=== PATIENT | female | born 1965 | race Caucasian/White ===

== ENCOUNTER 2017-05-03 14:25 | Emergency (ER) | payer BC, OTHER ==
[2017-05-03 14:39] VITALS: TEMP 98.4
--- NOTE | 2017-05-03 14:48 | EDPHY ---
H & P Stated Complaint: infection in groshong catheter HPI/ROS: CHIEF COMPLAINT: Infected Groshong catheter HISTORY OF PRESENT ILLNESS: The patient is a 51 y/o female who complains of an infected Groshong catheter. She has a history of IGG immune deficiency, (and states that she has Borrelia, babesiosis, and lyme disease). She receives IVIG every other week; her last IVIG was 5 days ago. She last had her left-sided catheter taken out 8 weeks ago because of infection. A right sided Groshong was placed at that time. One week ago she developed pain at the insertion site of her Groshong catheter. She also notes that she is currently having sinus pressure; she has a history of sinus infection and sinus surgery. She is not on any antibiotics at this time. Denies fever. REVIEW OF SYSTEMS: A ten point review of systems was performed and is negative with the exception of the items mentioned in the HPI. Past medical history: IGG deficiency Lyme disease Past surgical history: Tubal ligation Family history: Clotting disorders Social history: Recently moved to [place] from [place] Son at bedside PCP: Dr. Robertson General Appearance: Alert. Anxious. Vital signs reviewed. Heart rate 109, blood pressure 127/79 at triage. Eyes: Pupils equal and round, no conjunctival injection, no discharge. Anicteric. ENT, Mouth: Mucous membranes are moist, no oropharyngeal erythema or edema. No sinus tenderness. Neck: No lymphadenopathy, supple. Thorax: Right upper thorax Groshong catheter with a centimeter worth of erythema extending proximally from the entry site, no purulence, slight warmth and tenderness at insertion site. Respiratory: Lungs are clear to auscultation; no wheezes, rales, or rhonchi. Cardiovascular: Mildly tachycardic. No murmur, rub, or gallop. Gastrointestinal: Abdomen is soft and nontender, no masses or organomegaly, bowel sounds normal. Skin: Warm and dry, no rashes on exposed skin, normal color. Back: Nontender to palpation over the thoracolumbar spine. No CVAT. Extremities: No lower extremity edema, no calf tenderness or swelling. Neurological: Alert and oriented. Moving all four extremities easily and equally. Psychiatric: Normal affect. - Personal History LMP (Females 10-55): Post Menopausal Current Tetanus/Diphtheria Vaccine: No - Medical/Surgical History Hx Asthma: No Hx Chronic Respiratory Disease: No Hx Diabetes: No Hx Cardiac Disease: No Hx Renal Disease: No Hx Cirrhosis: No Hx Alcoholism: No Hx HIV/AIDS: No Hx Splenectomy or Spleen Trauma: No Other PMH: immune deficiency/tubal ligation/lyme disease - Social History Smoking Status: Never smoked Constitutional: Initial Vital Signs Temperature (C) 36.9 C 05/03/17 14:36 Heart Rate 109 H 05/03/17 14:36 Respiratory Rate 17 05/03/17 14:36 Blood Pressure 127/79 H 05/03/17 14:36 O2 Sat (%) 94 05/03/17 14:36 O2 Delivery Mode [Post Room Air Procedure 1st] O2 Delivery Mode [Procedural Non-Rebreather Mask 1st] O2 Delivery Mode [.Immediate Non-Rebreather Mask Pre-Procedure] O2 Delivery Mode Room Air O2 (L/minute) [Procedural 1st] 15 O2 (L/minute) 15 Allergies/Adverse Reactions: ceftriaxone [From Rocephin] Allergy (Verified 05/03/17 14:34) codeine [Codeine] Allergy (Verified 07/06/09 16:18) Swelling/neck,face,throat sulfamethoxazole [From Bactrim] Allergy (Verified 05/03/17 14:34) trimethoprim [From Bactrim] Allergy (Verified 05/03/17 14:34) Home Medications: Medication Instructions Recorded Amoxicillin/Clavulanate Pot 875 mg PO BID #14 tab 05/03/17 [Augmentin 875 MG TAB (*)] Biaxin (*) 05/03/17 Cortef 05/03/17 Cytomel 25 mcg (*) 05/03/17 HYDROCORTISONE 05/03/17 Hydrocodone/APAP 5/325 [[place] 1 - 2 tab PO Q4 PRN #6 tab 05/03/17 5/325 (RX)] Ivig 05/03/17 Mupirocin Calcium [Bactroban] 15 gm TP BID #1 cream..g. 05/03/17 Synthroid 05/03/17 Voriconazole 05/03/17 Wellbutrin Xl 05/03/17 Medical Decision Making ED Course/Re-evaluation: The patient is a 51 y/o female who presents with a right-sided upper thoracic Groshong catheter. The has a history of IGG deficiency. There is erythema extending proximally from the entry site. 1512: Consulted with WINNIE Horton, she recommends blood cultures, taking the Groshong catheter out and placing the patient on Augmentin. 1519: Consulted with Dr. Reno, general surgeon, regarding the removal of the Groshong catheter. 1538: Consulted with Dr. Reno who agrees to remove the Groshong catheter. 1548: Reassessed patient and discussed plan to remove her Groshong catheter. She agrees to (and requests) procedural sedation. 1614: Procedure: Conscious sedation. Indication: Groshong Catheter Removal I was asked by Dr. Reno, general surgeon, to perform procedural sedation. The patient is an appropriate candidate to tolerate procedural sedation. The patient's vitals signs and mental status are appropriate. The risks, benefits and alternatives of the sedation were discussed with the patient. The patient is ASA classification 1. The patient's Mallampati airway score was 1 and the patient did meet the 3-3-2 airway measurements. A time out was completed. The patient was sedated with 80mg IV Propofol. The patient was monitored with continuous pulse oximetry, monitor tech and end tidal CO2. There were no complications and no significant hypoxemia. I performed the sedation. The total time I spent at the bedside during the procedural sedation was 10 minutes. The patient was examined after the procedural sedation and has returned to their pre-sedation baseline with normal vital signs and a normal examination. 1635: Reassessed patient, she is awake, alert, and acting appropriately. Reassessed patient and discussed outpatient follow up with Dr. Reno and Dr. Glover for placement of a new Groshong catheter. Return precautions discussed; patient is comfortable with this plan. She is given a prescription for augmentin but states that she might not fill it. Labs have been reviewed. Discharge vitals reviewed. Differential Diagnosis: I considered a differential diagnosis that includes but is not limited to infection of indwelling catheter, septicemia, cellulitis, local skin reaction to tubing. - Data Points Laboratory Results: Laboratory Results 05/03/17 15:40 05/03/17 15:40 Medications Given: Discontinued Medications Fentanyl (Sublimaze) 25 mcg IVP EDNOW ONE Stop: 05/03/17 16:02 Last Admin: 05/03/17 16:07 Dose: 25 mcg Propofol (Diprivan) 80 mg IVP EDNOW ONE Stop: 05/03/17 16:04 Last Admin: 05/03/17 16:13 Dose: 80 mg Departure - Departure Disposition: Home, Routine, Self-Care Clinical Impression: Infection associated with catheter Cellulitis Qualifiers: Site of cellulitis: other site Qualified Code(s): L03.818 - Cellulitis of other sites Condition: Good Instructions: Cellulitis (ED) Additional Instructions: 1. Take Augmentin as prescribed. 2. Follow up with Dr. Rneo, general surgeon, and Dr. Glover, interventional radiologist, tomorrow for placement of a new Groshong catheter. 3. Return to the ED if you experience fever, weakness, numbness, chest pain or other worsening of your symptoms. Referrals: DR LUCIANA [Other] - As per Instructions Juan Reno MD [Medical Doctor] - As per Instructions Frank Glover MD [Medical Doctor] - As per Instructions Prescriptions: Amoxicillin/Clavulanate Pot [Augmentin 875 MG TAB (*)] 875 mg PO BID #14 tab Hydrocodone/APAP 5/325 [[place] 5/325 (RX)] 1 - 2 tab PO Q4 PRN #6 tab PRN Reason: pain Mupirocin Calcium [Bactroban] 15 gm TP BID #1 cream..g. Report Scribed for: Luci Arteaga Report Scribed by: Kim Michelle Date of Report: 05/03/17 Time of Report: 14:51 Physician Review and Approval Statement: 05/03/17 14:47 Portions of this note were transcribed by the medical billing manager. I, Dr. Luci Arteaga, personally performed the history, physical exam, and medical decision- making; and confirmed the accuracy of the information in the transcribed note.
[2017-05-03] MEDS ORDERED: PROPOFOL 200 MG/20 ML VIAL ONE (15:50)
[2017-05-03 15:54] LABS: % IMMATURE GRANULYOCYTES 0.3 % (0.0-1.1); ABSOLUTE IMMATURE GRANULOCYTES 0.01 10^3/uL (0.00-0.10); ADD DIFF? NO; ADD MORPH? NO; ADD SCAN? NO; ATYPICAL LYMPHOCYTE FLAG 10 (0-99); FRAGMENT RBC FLAG 0 (0-99); HEMATOCRIT 39.1 % (38.0-47.0); HEMOGLOBIN 12.9 g/dL (12.6-16.3); LEFT SHIFT FLG 0 (0-99); LIPEMIA HEMOLYSIS FLAG 80 (0-99); MEAN CELL HEMOGLOBIN 29.9 pg (27.9-34.1); MEAN CELL VOLUME 90.7 fL (81.5-99.8); MEAN PLATELET VOLUME 11.3 fL (8.7-11.7); PLATELET CLUMPS FLAG 0 (0-99); PLATELET COUNT 162 10^3/uL (150-400); RED BLOOD CELL COUNT 4.31 10^6/uL (4.18-5.33); RED CELL DISTRIBUTION WIDTH 14.6 % (11.5-15.2)
[2017-05-03] MEDS ORDERED: fentaNYL 100 MCG/2 ML INJ IVP ONE (16:01)
[2017-05-03] MEDS ORDERED: PROPOFOL 200 MG/20 ML VIAL IVP ONE (16:03)
[2017-05-03 16:05] LABS: ANION GAP 14 mEq/L (8-16); CALCIUM 9.6 mg/dL (8.5-10.4); CARBON DIOXIDE 24 mEq/l (22-31); CHLORIDE 103 mEq/L (97-110); CREATININE 0.7 mg/dL (0.6-1.0); GLOMERULAR FILTRATION RATE > 60; GLUCOSE 86 mg/dL (70-100); POTASSIUM 4.7 mEq/L (3.5-5.2); SODIUM 141 mEq/L (134-144)
[2017-05-03] MEDS ORDERED: fentaNYL 100 MCG/2 ML INJ ONE (16:05)
--- NOTE | 2017-05-03 16:08 | PDCONSULT ---
[employer] Note: Infected Groshong catheter right chest Request consultation: Dr. Luci Arteaga Chief complaint: Infected Groshong catheter right chest HPI: Sheree Allen is a 51-year-old patient presents to the hospital with recurrent infection of a recently placed Groshong catheter. Patient has this for IVIG therapy for history of IgG immuno deficiency and Lyme disease. The patient has previous infection of a left-sided Groshong catheter has had 2 Port- A-Cath placed and then subsequently removed. She is here because she noted infection/cellulitis of the entry site of the Groshong catheter earlier this morning Past medical history: IgG immunodeficiency, Lyme disease Past surgical history: Tubal ligation Review of systems: Significant for sinus infection. Lab work from Dr. Bradford is at [facility] not available to me at this time Social history: recently moved to [place] denies smoking Medications: Please see EMR Alert oriented anxious No distress Right upper chest Groshong catheter with 1.5 cm of cellulitis extending from the insertion site. Palpable cuff approximately at the level of the infection. No extremity edema Regular rate and rhythm Clear to auscultation Abdomen soft nontender nondistended 2+ over 2+ pulses Trachea midline Oropharynx without lesion Skin shows multiple erythematous lesions 1 on left catholic 1 on forehead 1 on her right chest cannot be sure these are related to any other problem. 05/03/17 15:40 05/03/17 15:40 Impression: Infected Groshong catheter. This will be done under conscious sedation per patient request. Plan: Removal of catheter with placement of Bactroban for MRSA treatment/ prevention. Culture the tip of the catheter. I would refrain from using antibiotics at this time if possible. The risk of conscious sedation were outlined with the patient and her son who is at the bedside. And they understand the risk but would like to proceed due to previous intolerance of removal local anesthetic
[2017-05-03 16:34] VITALS: RESP 16
[2017-05-03 16:57] VITALS: BP 98/68; PULSE 87; O2SAT 96
== END 2017-05-03 17:31 | disposition home or self-care (01) ==
DX: T80.218A Other infection due to central venous catheter, initial encounter (principal); L03.818 Cellulitis of other sites; Y71.2 Prosthetic and other implants, materials and accessory cardiovascular devices associated with adverse incidents
CPT/HCPCS: 96374; J2704; J3010

== ENCOUNTER 2017-07-31 14:51 | Day surgery (SDC) | payer BC ==
[~2017-07-31 14:51] MED LIST: HYDROCODONE/APAP 5/325 TAB PO SCH
--- NOTE | 2017-07-31 15:44 | EDPHY ---
H & P Smoking Status: Never smoked Time Seen by Provider: 07/31/17 15:35 HPI/ROS: CHIEF COMPLAINT: Splinter in right index finger HISTORY OF PRESENT ILLNESS: 52-year-old [id number] female with history of IgG immune deficiency, complaining of 5 days of foreign body sensation her right index finger middle phalanx after her finger ran up against a wood chair.. The patient was picking at the area yesterday, states that pieces of wood were splint during off. Was seen by her PCP earlier today who attempted to remove it, notes that there was discharge from the area. Patient has a foreign body sensation without paresthesia. PHYSICAL EXAM (Prior to examination, patient consented to physical exam, hands were washed and my usual and customary physical exam procedures followed) 1) GENERAL: Well-developed, well-nourished, alert and oriented. Appears to be in no acute distress. 2) HEAD: Normocephalic 3) HEENT: sclera anicteric 4) LUNGS: Breathing comfortably. 5) SKIN: Right index finger middle phalanx puncture wound on the radial aspect with tenderness to the palmar aspect. There is a palpable linear foreign body. Negative kanavel sign. FDP and FDS function intact. 6) MUSCULOSKELETAL: Negative kanavel sign. No lymphangitic streaking. No crepitus. No discharge. No fetid odor. 7) NEUROLOGIC: Full sensation distally (Alec,D Cristel) Constitutional: Initial Vital Signs Temperature (C) 37.0 C 07/31/17 15:03 Heart Rate 98 07/31/17 15:03 Respiratory Rate 18 07/31/17 15:03 Blood Pressure 116/73 07/31/17 15:03 O2 Sat (%) 98 07/31/17 15:03 O2 Delivery Mode Room Air Allergies/Adverse Reactions: ceftriaxone [From Rocephin] Allergy (Verified 05/03/17 14:34) sulfamethoxazole [From Bactrim] Allergy (Verified 05/03/17 14:34) trimethoprim [From Bactrim] Allergy (Verified 05/03/17 14:34) Home Medications: Medication Instructions Recorded Cortef 05/03/17 Cytomel 25 mcg (*) 05/03/17 HYDROCORTISONE 05/03/17 Ivig 05/03/17 Synthroid 05/03/17 Wellbutrin Xl 05/03/17 Desmopressin 07/31/17 MDM/Departure - MDM Imaging Results: Imaging Impressions Finger X-Ray 07/31/17 15:35 Impression: Normal. Extremity Ultrasound 07/31/17 15:45 Impression: Retained foreign body, as above. Dr. Glover discussed these findings by telephone with Dr. Gui Lawson on 2016 at 17:54. Images reviewed by myself (Carli Michael) ED Course/Re-evaluation: 4:[address] Laura Pineda will come to the ER to evaluate patient. Case discussed with secondary supervising physician Dr. Gui Lawson in the ER. 5:00 p.m.: Dr. Laura Pineda has evaluated the patient, would like to take the patient to the operating room to perform local excision of foreign body which will occur later this evening. 501 pm: Care patient turned over to Dr. Gui Lawson at 5:01 p.m. pending patient going to the operating room (Carli Michael) Differential Diagnosis: PHYSICIAN DOCUMENTATION: The patient was evaluated and managed by the Physician Biology Faculty Member and myself. I have reviewed the chart and agree with the findings and plan of care as documented. In addition, I examined the patient myself at 1730. History confirmed as splinter in finger. Physical findings as follows: No redness or fever. Patient was seen by Ediwn, she understands that she is NPO, plan for OR tonight for removal of foreign body. 1802: US per Liliane shows retained linear foreign body in finger. I am the secondary supervising physician. (Gui Lawson) - Depart Disposition: To OP Cath/Surgery Clinical Impression: Foreign body of right index finger Referrals: AVA ADAM [Primary Care Provider] - As per Instructions
[2017-07-31] MEDS ORDERED: LET GEL TOPICAL 1 EA SYR TP ONE (16:06)
--- NOTE | 2017-07-31 18:48 | GCON ---
[f rep st] CONSULTATION EMERGENCY DEPARTMENT ORTHOPEDIC CONSULTATION CURRENT COMPLAINT: Right index finger pain. HISTORY OF PRESENT ILLNESS: The patient is a 52-year-old female, who several days ago was running he r hand down on a chair leg, when a fragment of wood that had displaced from the chair was driven deep into her finger. She has tried herself to remove the fragment, she has had a physician in the offic e try and remove the fragment; however, it is very large and very deep. She was seen in the emergenc y room, where ultrasound revealed a large foreign body going transverse across her finger. PHYSICAL EXAMINATION: The patient remains grossly neurologically intact distally to the radial and u lnar borders of the digit. Her FDP remains intact. She is tender over the midportion of her middle phalanx of the index finger. On its volar side, she has a single entry wound that is small and punct ate, and she has a palpable foreign body just below the subcutaneous layers. Options were discussed with the patient to include continued conservative management versus operative treatment. She wishes for operative treatment. She will therefore be brought to the operating room today, to undergo an I and D of the finger and removal of loose body from her finger. /[id number]/MODL
[2017-07-31] MEDS ORDERED: NS 1,000 ML IV ONE (19:04)
[2017-07-31] MEDS ORDERED: NS 1,000 ML IV SCH (19:15)
[2017-07-31] MEDS ORDERED: MIDAZOLAM 2 MG/2 ML VIAL IVP ONE (22:42)
[2017-07-31] MEDS ORDERED: POLYMYXIN B SULFATE 500,000 UNIT/10 ML SYR IRR ONE (22:43)
--- NOTE | 2017-07-31 22:44 | PDANEPAE ---
ANE History of Present Illness R index finger foreign body removal ANE Past Medical History - Pulmonary History Hx Oxygen in Use at Home: No - Endocrine History Hx Diabetes: No Hypothyroid: Yes - Other Health History Other Health History: IgG deficiency ANE Review of Systems Review of systems is: negative Review of Systems: - Exercise capacity Exercise capacity: >=4 METS ANE Patient History - Allergies Allergies/Adverse Reactions: ceftriaxone [From Rocephin] Allergy (Verified 05/03/17 14:34) sulfamethoxazole [From Bactrim] Allergy (Verified 05/03/17 14:34) trimethoprim [From Bactrim] Allergy (Verified 05/03/17 14:34) - Home Medications Home medications: home medication list seen and reviewed Home Medications: Cortef 05/03/17 [Last Taken Unknown] Cytomel 25 mcg (*) 05/03/17 [Last Taken Unknown] HYDROCORTISONE 05/03/17 [Last Taken Unknown] Ivig 05/03/17 [Last Taken Unknown] Synthroid 05/03/17 [Last Taken Unknown] Wellbutrin Xl 05/03/17 [Last Taken Unknown] Desmopressin 07/31/17 [Last Taken Unknown] - NPO status NPO Status: no food or drink >8 hours NPO Since - Liquids (Date): 07/31/17 NPO Since - Liquids (Time): 15:00 NPO Since - Solids (Date): 07/31/17 NPO Since - Solids (Time): 00:00 - Anes Hx Anes Hx: no prior problems - Smoking Hx Smoking Status: Never smoked - Family Anes Hx Family Anes Hx: none ANE Labs/Vital Signs - Vital Signs Blood Pressure: 111/63 Heart Rate: 90 Respiratory Rate: 18 O2 Sat (%): 96 Height: 160.02 cm Weight: 54.431 kg ANE Physical Exam - Airway Neck exam: FROM Mallampati Score: Class 1 Mouth exam: normal dental/mouth exam - Pulmonary Pulmonary: no respiratory distress - Cardiovascular Cardiovascular: regular rate and rhythym - ASA Status ASA Status: II ANE Anesthesia Plan Total IV Anesthesia: Yes
[2017-07-31] MEDS ORDERED: MIDAZOLAM 2 MG/2 ML VIAL ONE (22:46)
[2017-07-31] MEDS ORDERED: LR 1,000 ML IV ONE (22:53)
[2017-07-31] MEDS ORDERED: PROPOFOL/EMULSION 500 MG/50 ML BOTTLE IV ONE (22:55)
[2017-07-31] MEDS ORDERED: LIDOCAINE 2% 100 MG/5 ML SYR ONE (22:55)
[2017-07-31] MEDS ORDERED: BUPIVACAINE 0.5% 30 ML SDV ONE (23:09)
[2017-07-31] MEDS ORDERED: ONDANSETRON 4 MG/2 ML VIAL IVP PRN ×2 (23:27→23:33)
--- NOTE | 2017-07-31 23:27 | POSTOPPROG ---
Post Op Note Date of Operation: 07/31/17 Surgeon: Laura Pineda Anesthesiologist: isaac Anesthesia: IV Sedation Pre-op Diagnosis: r if fb Procedure: removal r if fb Inf/Abcess present in the surg proc area at time of surgery?: Yes Depth: Superfical (Skin SQ) EBL: Minimal
[2017-07-31] MEDS ORDERED: HYDROCODONE/APAP 5/325 TAB PO PRN (23:33)
[2017-07-31] MEDS ORDERED: NALOXONE HCL 0.4 MG/ML INJ IVP PRN (23:33)
[2017-07-31] MEDS ORDERED: DEXAMETHASONE 4 MG/ML VIAL IVP PRN (23:33)
[2017-07-31] MEDS ORDERED: OXYCODONE/APAP 5/325 TAB PO PRN (23:33)
[2017-07-31] MEDS ORDERED: HYDROmorphONE/DILAUDID 1 MG/ML INJ IVP PRN (23:33)
[2017-07-31] MEDS ORDERED: ACETAMINOPHEN 500 MG TAB PO PRN (23:33)
[2017-07-31] MEDS ORDERED: fentaNYL 100 MCG/2 ML INJ IVP PRN (23:33)
--- NOTE | 2017-07-31 23:36 | POSTANESTH ---
Post Anesthetic Evaluation Cardiovascular Status: Normal, Stable, Similar to Pre-Op Cond Respiratory Status: Normal, Stable, Similar to Pre-op Cond. Level of Consciousness/Mental Status: Can Participate in Eval, Mildly Sleepy, Arousable Pain Control: Adequate, Prn Tx Ordered Nausea/Vomiting Control: Adequate, Prn Tx Ordered Complications Possibly Related to Anesthesia: None Noted
--- NOTE | 2017-08-01 00:04 | GOP ---
[f rep st] OPERATIVE REPORT DATE OF OPERATION: SURGEON: Laura Pineda MD ANESTHESIA: By mask anesthetic. PREOPERATIVE DIAGNOSIS: Right index finger foreign body. POSTOPERATIVE DIAGNOSIS: Right index finger foreign body. PROCEDURE PERFORMED: Excision of right index finger foreign body. FINDINGS: INDICATIONS: This is a 52-year-old female with a several-day history of a foreign body in the right index finger. She feels as if she had a wooden splinter driven into her finger when she was moving h er hand across a chair leg. It has been there for several days. She was tried to remove it herself, and another physician has tried to remove it without luck. Ultrasound in the ER revealed a foreign body in the subcutaneous area, transverse to her middle phalanx of the index finger. She wishes to h ave surgery in order to resolve the problem. DESCRIPTION OF PROCEDURE: Patient brought to the operating room after the right index finger had bee n identified as the correct finger by the patient, nurse and physician. Once in the operating room, she was placed under general anesthesia using mask anesthetic. She had a tourniquet placed around th e midportion of the forearm, with the right upper extremity sterilely prepped and draped in usual fas hion, using GSI solution. Once prepped and draped, the limb was exsanguinated, tourniquet inflated t o 250 mmHg. Starting at the entry hole that was visible on the ulnar border of the volar pad of the middle phalan x, sharp dissection was carried down through the skin into the subcutaneous layers. There was no ble eding, which made identifying the splinter easy. It was approximately 2 cm wide and approximately 7 mm long, in the subcutaneous tissue. Further exploration was done around the subcutaneous tissue. F inding no other foreign bodies, the wound was thoroughly irrigated with antibiotic solution. It was closed in a single layer using 3-0 Prolene suture in a running subcuticular stitch. 5 cc of Marcaine was infused on either side of the MCP joint volarly, in order to gain a digital block. The wound wa s dressed with Steri-Strips, Xeroform and tube gauze. The tourniquet was deflated at 6 minutes. The arm was completely undraped in the operating room, lousi rniquet removed from the forearm. She was woken up, transferred onto a stretcher, and sent to [facility] room in good condition. TOURNIQUET TIME: 6 minutes. /[id number]/MODL
[2017-08-01 00:20] VITALS: BP 118/70; PULSE 72; RESP 16; TEMP 97.7; O2SAT 97
== END 2017-08-01 00:10 | disposition home or self-care (01) ==
LOC: FSGY 22:40
PROVIDERS: ATTEND Orthopaedic Surgery
PROC: 0JCJ0ZZ Extirpation of Matter from Right Hand Subcutaneous Tissue and Fascia, Open Approach (ICD-10-PCS; principal; 2017-07-31 22:30)
DX: S60.450A Superficial foreign body of right index finger, initial encounter (principal); W45.8XXA Other foreign body or object entering through skin, initial encounter
CPT/HCPCS: J2001; J2250; J2704

== ENCOUNTER 2017-09-06 19:29 | Emergency (ER) | payer BC ==
[2017-09-06 19:36] VITALS: TEMP 98.6
[2017-09-06] MEDS ORDERED: NS 1,000 ML IV ONE (20:01)
[2017-09-06] MEDS ORDERED: ONDANSETRON 4 MG/2 ML VIAL IVP ONE (20:01)
[2017-09-06] MEDS ORDERED: fentaNYL 100 MCG/2 ML INJ IVP ONE ×2 (20:01→20:45)
--- NOTE | 2017-09-06 20:06 | EDPHY ---
H & P Stated Complaint: IVIG Fri now CRUMP - Personal History LMP (Females 10-55): Post Menopausal Current Tetanus/Diphtheria Vaccine: Unsure Current Tetanus Diphtheria and Acellular Pertussis (TDAP): Unsure - Medical/Surgical History Hx Asthma: No Hx Chronic Respiratory Disease: No Hx Diabetes: No Hx Cardiac Disease: No Hx Renal Disease: No Hx Cirrhosis: No Hx Alcoholism: No Hx HIV/AIDS: No Hx Splenectomy or Spleen Trauma: No Other PMH: immune deficiency/tubal ligation/lyme disease/ - Social History Smoking Status: Never smoked Time Seen by Provider: 09/06/17 19:50 HPI/ROS: Chief Complaint: Headache, nausea HPI: 52-year-old woman with history of immune deficiency syndrome who BC use IVIG every 3 weeks. Patient also has a history of migraine headaches. Patient had IV Ig infusion on Thursday. Last night (Thursday) she started developing a left retro-orbital headache similar to her prior migraine headaches. She has had some associated nausea with this as well. No fevers or chills. It was gradual in onset. Is not the worst headache of her life. No neck stiffness. No chest pain or shortness of breath. She has positive photophobia and phonophobia. She took Aleve and Zofran at home with no relief. ROS: 10 point Review of Systems is negative except as noted in the HPI. PMH: Immunodeficiency syndrome, migraine headaches Social History: No smoking, no alcohol, no recreational drug use Family History: non-contributory Physical Exam: Gen: Awake, Alert, No Distress HEENT: Nose: no rhinorrhea Eyes: PERRLA, EOMI Mouth: Moist mucosa Neck: Supple, no JVD, no meningismus Chest: nontender, lungs clear to auscultation Heart: S1, S2 normal, no murmur Abd: Soft, non-tender, no guarding Back: no CVA tenderness, no midline tenderness Ext: no edema, non-tender Skin: no rash Neuro: CN II-XII intact, Sensation grossly intact, Strength 5/5 in bilateral upper and lower extremities (Robert Bolton) Constitutional: Initial Vital Signs Temperature (C) 37 C 09/06/17 19:34 Heart Rate 92 09/06/17 19:34 Respiratory Rate 16 09/06/17 19:34 Blood Pressure 129/86 H 09/06/17 19:34 O2 Sat (%) 99 09/06/17 19:34 O2 Delivery Mode Room Air Allergies/Adverse Reactions: ceftriaxone [From Rocephin] Allergy (Verified 05/03/17 14:34) sulfamethoxazole [From Bactrim] Allergy (Verified 05/03/17 14:34) trimethoprim [From Bactrim] Allergy (Verified 05/03/17 14:34) Home Medications: Medication Instructions Recorded Cortef 05/03/17 Cytomel 25 mcg (*) 05/03/17 HYDROCORTISONE 05/03/17 Ivig 05/03/17 Synthroid 05/03/17 Wellbutrin Xl 05/03/17 Desmopressin 07/31/17 Medical Decision Making ED Course/Re-evaluation: Patient presenting with headache. She has no fever. She has no meningismus. No symptoms suggestive acute infectious process. She does have a history migraine headaches and this is similar. She states that she has had bad reactions with multiple medications and is not interested in either medications in my usual migraine cocktail. She is requesting pain medicine and antiemetics only. I have offered her Toradol and Haldol and Benadryl which she is refusing. Will give her a dose of fentanyl and Zofran and a L fluid and reassess. Patient has had minimal relief with fentanyl. We will re-dose. The patient does not want any other medications just wants to continue with the narcotics as possible. I have ordered an additional 50 mcg of fentanyl at her request. [address]109 patient signed out to Dr. Butler pending improvement in her symptoms. She is noted to have a leukopenia of 2.7 but in her records this is not unusual for her. She has not have any symptoms suggesting of infection. Her platelet count is 139. (Robert Bolton) Other Provider: I assumed care of this patient from Dr. Bolton at shift change. Patient had presented complaining of a headache which had some component similar to her migraine headaches. She has received fentanyl as well as Zofran and Phenergan for her discomfort. 2237: I reviewed the patient's laboratory evaluation. Of note, the patient has a sodium of 122. On discussions with the patient, she reports that about 3 weeks ago she was started on desmopressin. She tells me that her sodium was "low normal "at that time. Her was able to pull up prior laboratory records and the patient had a sodium of 134, I believe, when she was started on the desmopressin. Patient reports that she has felt dehydrated this afternoon and so she self- administered 250mL IV NS this afternoon as she felt dehydrated. Her reports she has not been eating or drinking since yesterday. After a long conversation, the plan was to recheck the patient's sodium currently as she has received a L of normal saline in the emergency department. Repeat chemistry demonstrates a sodium of 122. I then held a long conversation again with the patient and her . We discussed the significance of this very low sodium, we discussed the risks of hyponatremia including seizure, confusion, headache, ongoing nausea and vomiting , altered mental status. We discussed the risks associated with raising the sodium including neurologic issues and coma. Patient and have decided that they would prefer to be discharged from the hospital the follow up with their primary care physician who had prescribed desmopressin. They will do so tomorrow. AMA form was signed. They understand my concerns and they understand that they may return at any point to the emergency department. ( Haleigh Butler) - Data Points Laboratory Results: Laboratory Results 09/06/17 20:25 09/06/17 22:52 09/06/17 09/06/17 09/06/17 22:52 20:25 20:25 WBC 2.70 10^3/uL L 10^3/uL (3.80-9.50) RBC 3.57 10^6/uL L 10^6/uL (4.18-5.33) Hgb 11.0 g/dL L g/dL (12.6-16.3) Hct 30.9 % L % (38.0-47.0) MCV 86.6 fL fL (81.5-99.8) MCH 30.8 pg pg (27.9-34.1) MCHC 35.6 g/dL g/dL (32.4-36.7) RDW 14.6 % % (11.5-15.2) Plt Count 132 10^3/uL L 10^3/uL (150-400) MPV 10.6 fL fL (8.7-11.7) Neut % (Auto) 66.7 % % (39.3-74.2) Lymph % (Auto) 23.3 % % (15.0-45.0) [place] % (Auto) 9.6 % % (4.5-13.0) Eos % (Auto) 0.0 % L % (0.6-7.6) Baso % (Auto) 0.0 % L % (0.3-1.7) Nucleat RBC Rel Count 0.0 % % (0.0-0.2) Absolute Neuts (auto) 1.80 10^3/uL 10^3/uL (1.70-6.50) Absolute Lymphs (auto) 0.63 10^3/uL L 10^3/uL (1.00-3.00) Absolute Monos (auto) 0.26 10^3/uL L 10^3/uL (0.30-0.80) Absolute Eos (auto) 0.00 10^3/uL L 10^3/uL (0.03-0.40) Absolute Basos (auto) 0.00 10^3/uL L 10^3/uL (0.02-0.10) Absolute Nucleated RBC 0.00 10^3/uL 10^3/uL (0-0.01) Immature Gran % 0.4 % % (0.0-1.1) Immature Gran # 0.01 10^3/uL 10^3/uL (0.00-0.10) Sodium 122 mEq/L L mEq/L 122 mEq/L L mEq/L (135-145) (135-145) Potassium 4.3 mEq/L mEq/L 4.2 mEq/L mEq/L (3.5-5.2) (3.5-5.2) Chloride 91 mEq/L L mEq/L 90 mEq/L L mEq/L (97-110) (97-110) Carbon Dioxide 23 mEq/l mEq/l 21 mEq/l L mEq/l (22-31) (22-31) Anion Gap 8 mEq/L mEq/L 11 mEq/L mEq/L (8-16) (8-16) BUN 10 mg/dL mg/dL 11 mg/dL mg/dL (7-23) (7-23) Creatinine 0.4 mg/dL L mg/dL 0.5 mg/dL L mg/dL (0.6-1.0) (0.6-1.0) Estimated GFR > 60 > 60 Glucose 96 mg/dL mg/dL 117 mg/dL H mg/dL (70-100) (70-100) Calcium 7.7 mg/dL L mg/dL 8.2 mg/dL L mg/dL (8.5-10.4) (8.5-10.4) Medications Given: Discontinued Medications Fentanyl (Sublimaze) 50 mcg IVP EDNOW ONE Stop: 09/06/17 20:02 Last Admin: 09/06/17 20:24 Dose: 50 mcg Fentanyl (Sublimaze) 50 mcg IVP EDNOW ONE Stop: 09/06/17 20:46 Last Admin: 09/06/17 21:17 Dose: 50 mcg Hydromorphone HCl (Dilaudid) 0.5 mg IVP EDNOW ONE Stop: 09/06/17 23:00 Last Admin: 09/06/17 23:04 Dose: 0.5 mg Sodium Chloride (Ns) 1,000 mls @ 0 mls/hr IV ONCE ONE; Wide Open PRN Reason: Protocol Stop: 09/06/17 20:02 Last Admin: 09/06/17 20:22 Dose: 1,000 mls Ondansetron HCl (Zofran) 4 mg IVP EDNOW ONE Stop: 09/06/17 20:02 Last Admin: 09/06/17 20:23 Dose: 4 mg Promethazine HCl (Phenergan) 12.5 mg IVP ONCE ONE Stop: 09/06/17 22:08 Last Admin: 09/06/17 22:12 Dose: 12.5 mg Departure - Departure Disposition: Against Medical Advice Clinical Impression: Hyponatremia, Nausea Headache Qualifiers: Headache type: unspecified Headache chronicity pattern: acute headache Intractability: not intractable Qualified Code(s): R51 - Headache Condition: Fair Instructions: Migraine Headache (ED), Hyponatremia (ED) Additional Instructions: Your sodium is 122. This is critically low. You been offered admission to the hospital for further monitoring of this low sodium, further evaluation of the low sodium, further evaluation of the headache , and treatment for potential complications of severe hyponatremia. You have elected to go home. Please follow up with your primary care physician as soon as possible. Do not take any further desmopressin. Referrals: AVA ADAM [Primary Care Provider] - As per Instructions
[2017-09-06 20:55] LABS: PLATELET COUNT 132 10^3/uL (150-400)
[2017-09-06] MEDS ORDERED: PROMETHAZINE HCL 25 MG/ML INJ ONE (22:05)
[2017-09-06] MEDS ORDERED: PROMETHAZINE HCL 25 MG/ML INJ IVP ONE (22:07)
[2017-09-06] MEDS ORDERED: HYDROmorphONE/DILAUDID 1 MG/ML INJ ONE (22:57)
[2017-09-06] MEDS ORDERED: HYDROmorphONE/DILAUDID 1 MG/ML INJ IVP ONE (22:59)
[2017-09-06 23:05] VITALS: RESP 18
[2017-09-07 00:14] VITALS: BP 130/83; PULSE 78; O2SAT 95
== END 2017-09-07 00:12 | disposition left against medical advice (07) ==
DX: E87.1 Hypo-osmolality and hyponatremia (principal); E86.9 Volume depletion, unspecified
CPT/HCPCS: 96374; J1170; J2405; J2550; J3010

== ENCOUNTER 2017-09-07 17:16 | Emergency (ER) | payer BC ==
[2017-09-07 17:29] VITALS: RESP 18
[2017-09-07 18:42] LABS: PLATELET COUNT 160 10^3/uL (150-400)
[2017-09-07] MEDS ORDERED: HYDROmorphONE/DILAUDID 1 MG/ML INJ IVP ONE (19:19)
[2017-09-07 19:30] VITALS: O2SAT 98
--- NOTE | 2017-09-07 19:50 | EDPHY ---
H & P Stated Complaint: "Still sick" seen here yesterday; states low sodium Time Seen by Provider: 09/07/17 18:33 HPI/ROS: Chief complaint: Headache History of present illness: This is a 52-year-old female who presents to the emergency department for evaluation of headache. Patient has a history of the immunodeficiency and receives IVIG regularly. She was seen here yesterday for headache. She is treated with improvement in symptoms. However sodium was noted to be 122 and she was offered admission. She declined. She does have a port in place for her IVIG and gave herself 2 500 cc boluses of normal saline today over the course of the day. She states her headache persists. She now has diffuse body aches. She has also felt febrile. She denies other associated signs or symptoms including no neck pain or back pain. No cough, no chest congestion, no URI symptoms, no rash. Review of systems: A 10 point review of systems was obtained and other than described above was negative - Personal History LMP (Females 10-55): Post Menopausal Current Tetanus Diphtheria and Acellular Pertussis (TDAP): No - Medical/Surgical History Hx Asthma: No Hx Chronic Respiratory Disease: No Hx Diabetes: No Hx Cardiac Disease: No Hx Renal Disease: No Hx Cirrhosis: No Hx Alcoholism: No Hx HIV/AIDS: No Hx Splenectomy or Spleen Trauma: No Other PMH: immune deficiency/tubal ligation/lyme disease/ - Social History Smoking Status: Never smoked - Physical Exam Exam: General Appearance: Alert, nontoxic. Eyes: Pupils equal and round no pallor or injection. ENT, Mouth: Mucous membranes moist. Respiratory: There are no retractions, lungs are clear to auscultation. Cardiovascular: Regular rate and rhythm. Gastrointestinal: Abdomen is soft and non tender, no masses, bowel sounds normal. Neurological: Alert and oriented x4. Cranial nerves 2-12 grossly intact. Strength and sensation intact and symmetrical. No meningismus. Skin: Warm and dry, no rashes. Musculoskeletal: Neck is supple non tender. Extremities are symmetrical, full range of motion. Psychiatric: Patient is oriented X 3, there is no agitation. Constitutional: Initial Vital Signs Temperature (C) 38.1 C 09/07/17 17:26 Heart Rate 96 09/07/17 17:26 Respiratory Rate 18 09/07/17 17:26 Blood Pressure 100/68 09/07/17 17:26 O2 Sat (%) 97 09/07/17 17:26 O2 Delivery Mode Room Air Allergies/Adverse Reactions: ceftriaxone [From Rocephin] Allergy (Verified 09/07/17 17:29) sulfamethoxazole [From Bactrim] Allergy (Verified 09/07/17 17:29) trimethoprim [From Bactrim] Allergy (Verified 09/07/17 17:29) Home Medications: Medication Instructions Recorded Cortef 05/03/17 Cytomel 25 mcg (*) 05/03/17 HYDROCORTISONE 05/03/17 Ivig 05/03/17 Synthroid 05/03/17 Wellbutrin Xl 05/03/17 Desmopressin 07/31/17 Medical Decision Making ED Course/Re-evaluation: Patient was discussed with my secondary supervising physician Dr. Luz Marina Burgess. Patient presents to the emergency department with headache, body aches and fever. She is nontoxic. Blood studies are obtained, she remains leukopenic but her sodium has stabilized. Influenza and RSV swabs are negative. She has declined chest x-ray. She is symptomatically treated and reports significant improvement in pain. She would like to be discharged home. Home care is discussed. She has an appointment with her primary care doctor tomorrow. She is asked to keep this. Return precautions are given. Patient voiced understanding and agreement with plan. Differential Diagnosis: Included but not limited to URI, viral syndrome including influenza, electrolyte disturbances, anemia, migraines - Data Points Laboratory Results: Laboratory Results 09/07/17 18:30 09/07/17 18:30 09/07/17 09/07/17 09/07/17 19:30 18:30 18:30 WBC 2.42 10^3/uL L 10^3/uL (3.80-9.50) RBC 4.11 10^6/uL L 10^6/uL (4.18-5.33) Hgb 12.8 g/dL g/dL (12.6-16.3) Hct 36.2 % L % (38.0-47.0) MCV 88.1 fL fL (81.5-99.8) MCH 31.1 pg pg (27.9-34.1) MCHC 35.4 g/dL g/dL (32.4-36.7) RDW 15.1 % % (11.5-15.2) Plt Count 160 10^3/uL 10^3/uL (150-400) MPV 10.5 fL fL (8.7-11.7) Neut % (Auto) 57.5 % % (39.3-74.2) Lymph % (Auto) 29.3 % % (15.0-45.0) [place] % (Auto) 12.8 % % (4.5-13.0) Eos % (Auto) 0.0 % L % (0.6-7.6) Baso % (Auto) 0.4 % % (0.3-1.7) Nucleat RBC Rel Count 0.0 % % (0.0-0.2) Absolute Neuts (auto) 1.39 10^3/uL L 10^3/uL (1.70-6.50) Absolute Lymphs (auto) 0.71 10^3/uL L 10^3/uL (1.00-3.00) Absolute Monos (auto) 0.31 10^3/uL 10^3/uL (0.30-0.80) Absolute Eos (auto) 0.00 10^3/uL L 10^3/uL (0.03-0.40) Absolute Basos (auto) 0.01 10^3/uL L 10^3/uL (0.02-0.10) Absolute Nucleated RBC 0.00 10^3/uL 10^3/uL (0-0.01) Immature Gran % 0.0 % % (0.0-1.1) Immature Gran # 0.00 10^3/uL 10^3/uL (0.00-0.10) Sodium 136 mEq/L mEq/L (135-145) Potassium 4.8 mEq/L mEq/L (3.5-5.2) Chloride 100 mEq/L mEq/L (97-110) Carbon Dioxide 22 mEq/l mEq/l (22-31) Anion Gap 14 mEq/L mEq/L (8-16) BUN 12 mg/dL mg/dL (7-23) Creatinine 0.6 mg/dL mg/dL (0.6-1.0) Estimated GFR > 60 Glucose 89 mg/dL mg/dL (70-100) Calcium 9.5 mg/dL D mg/dL (8.5-10.4) Nasal Influenza A PCR NEGATIVE FOR FLU A (NEGATIVE) Nasal Influenza B PCR NEGATIVE FOR FLU B (NEGATIVE) RSV (PCR) NEGATIVE FOR RSV (NEGATIVE) Medications Given: Discontinued Medications Hydromorphone HCl (Dilaudid) 0.5 mg IVP EDNOW ONE Stop: 09/07/17 19:20 Last Admin: 09/07/17 19:28 Dose: 0.5 mg Departure - Departure Disposition: Home, Routine, Self-Care Clinical Impression: Headache Qualifiers: Headache type: unspecified Headache chronicity pattern: acute headache Intractability: not intractable Qualified Code(s): R51 - Headache Condition: Good Instructions: Acute Headache (ED) Additional Instructions: Follow-up with your primary care doctor in 1-2 days for recheck without fail If symptoms worsen or new symptoms develop return to the emergency room for recheck Referrals: AVA ADAM [Primary Care Provider] - As per Instructions
[2017-09-07 21:03] VITALS: BP 111/69; PULSE 87; TEMP 99.5
== END 2017-09-07 21:02 | disposition home or self-care (01) ==
DX: R51 Headache (principal)
CPT/HCPCS: 96374; J1170

== ENCOUNTER 2018-07-31 15:25 | Emergency (ER) | payer BC ==
--- NOTE | 2018-07-31 16:20 | EDPHY ---
H & P Stated Complaint: hit in head by xray machine yesterday, no loc, diarrhea, stomach pain Time Seen by Provider: 07/31/18 16:20 - Personal History LMP (Females 10-55): Post Menopausal Current Tetanus/Diphtheria Vaccine: No - Medical/Surgical History Hx Asthma: No Hx Chronic Respiratory Disease: No Hx Diabetes: No Hx Cardiac Disease: No Hx Renal Disease: No Hx Cirrhosis: No Hx Alcoholism: No Hx HIV/AIDS: No Hx Splenectomy or Spleen Trauma: No Other PMH: immune deficiency/tubal ligation/lyme disease, lupus - Social History Smoking Status: Never smoked Constitutional: Initial Vital Signs Temperature (C) 37.6 C 07/31/18 15:50 Heart Rate 93 07/31/18 15:50 Respiratory Rate 16 07/31/18 15:50 Blood Pressure 111/72 07/31/18 15:50 O2 Sat (%) 96 07/31/18 15:50 O2 Delivery Mode Room Air Allergies/Adverse Reactions: ceftriaxone [From Rocephin] Allergy (Verified 07/31/18 15:48) sulfamethoxazole [From Bactrim] Allergy (Verified 07/31/18 15:48) trimethoprim [From Bactrim] Allergy (Verified 07/31/18 15:48) Home Medications: Medication Instructions Recorded Cortef 05/03/17 Cytomel 25 mcg (*) 05/03/17 Synthroid 05/03/17 Wellbutrin Xl 05/03/17 Prednisone 07/31/18 Medical Decision Making - Diagnostics Imaging: Discussed imaging studies w/ house calls nurse practitioner Radiologist ED Course/Re-evaluation: CHIEF COMPLAINT: Head injury HISTORY OF PRESENT ILLNESS: Yesterday while at the dentist, the [employer] machine fell off the wall and hit her in the head. She had which she said might be a brief minute of being dazed, but denies any significant loss of conscious. She denies any vomiting but says she has had some nausea with stomach pains. She flew home yesterday after this occurred. Her headaches persisted significantly woke her up at 2:30 a.m. this morning. She denies any neurologic problems. She denies any dizziness. The light bothers her eyes. She does feel a bit foggy regarding her cognition. No other injuries no other complaints. No fevers no chills. REVIEW OF SYSTEMS: A comprehensive 10 system review of systems is otherwise negative aside from elements mentioned in the history of present illness and medical decision making. PHYSICAL EXAM: HR, BP, O2 Sat, RR. Temp noted General Appearance: Alert, well hydrated, appropriate, and non-toxic appearing. Head: Atraumatic without scalp tenderness or obvious injury Eyes: Pupils equal, round, reactive to light and accommodation, EOMI, no trauma , no injection. Ears: Clear bilaterally, no perforation, normal landmarks Nose: Atraumatic, no rhinorrhea, clear. Throat: There is no erythema or exudates, no lesions, normal tonsils, mucus membranes moist. Neck: Supple, 2+ carotid upstroke, nontender, no lymphadenopathy. Respiratory: No retractions, no distress, no wheezes, and no accessory muscle use. Lungs are clear to auscultation bilaterally. Cardiovascular: Regular rate and rhythm, no murmurs, rubs, or gallops. Bilateral carotid, radial, dorsalis pedis, and posterior tibial pulses intact. Good capillary refill all extremities. Gastrointestinal: Abdomen is soft, nontender, non-distended, no masses, no rebound, no guarding, no peritoneal signs. Musculoskeletal: Normal active ROM of all extremities, atraumatic. Neurological: Alert, appropriate, and interactive. The patient has normal DTRs and non-focal cranial nerves, motor, sensory, and cerebellar exam. Skin: No rashes, good turgor, no nodules on palpation. Past medical history: Numerous recent dental procedures and an immune deficiency problem Past surgical history: Noncontributory Family history: Noncontributory Social history: , not employed, does not abuse tobacco drugs or alcohol DIAGNOSTICS/PROCEDURES/CRITICAL CARE TIME: Study: CT of the head without Indication: Head trauma Results: CT scan of the head without was obtained. The results of the study are normal. The study was read by the radiologist, Dr. Jan Messina. I viewed the images myself on the PACS system. DIFFERENTIAL DIAGNOSIS: The differential diagnosis for the patient's trauma included but was not limited to intracranial injury, long bone and pelvic bone fractures, spinal injury, intra-abdominal injury, and intra-thoracic injury. MEDICAL DECISION MAKING: This patient has a normal head CT. She clinically is a postconcussive syndrome. We will give her follow-up information and follow- up consultation with Dr. Jaimie Lancaster. - Data Points Medications Given: Discontinued Medications Ibuprofen (Motrin) 600 mg PO EDNOW ONE Stop: 07/31/18 17:08 Last Admin: 07/31/18 17:15 Dose: Not Given Departure - Departure Disposition: Home, Routine, Self-Care Clinical Impression: Post concussion syndrome Condition: Good Instructions: Concussion (ED), Post Concussion Syndrome (ED) Additional Instructions: 1. Follow-up with your primary care doctor this week. We have referred you to a concussion specialist, please follow up with her as well for continued management of your symptoms. 2. Brain rest - try to avoid TV, video games, cell phones, or reading while symptoms persist. You may reintroduce activities as tolerated. 3. Physical rest - avoid activities that could result in further head injury or that require prolonged attention until your symptoms completely resolve. 4. You may take Tylenol or Ibuprofen as directed below as needed for pain. 5. Return to the Emergency Department for severe headache, vomiting, vision changes, confusion, fever or other concerns. Adult Pain & Fever Control: We recommend Acetaminophen (Tylenol) and Ibuprofen (Motrin,Advil) for pain and fever control. When fever is high or pain severe, both drugs can be used at the same time, but at different intervals. Please note the time differences. Your dose is: Acetaminophen 650mg every 4 to 6 hours Ibuprofen 400mg every 6-8 hours with food Note: do not take Acetaminophen with Hydrocodone (Vicodin, Lortab) or Oxycodone (Percocet). These medications also contain Acetaminophen. No more than 3000mg of Acetaminophen should be taken in 24 hours (for an adult). Referrals: JAN CUMMINS [Other] - As per Instructions Jaimie Lancaster MD [Medical Doctor] - As per Instructions
--- NOTE | 2018-07-31 16:21 | EDPHY ---
General - History Smoking Status: Never smoked - Objective Vital Signs: Initial Vital Signs Temperature (C) 37.6 C 07/31/18 15:50 Heart Rate 93 07/31/18 15:50 Respiratory Rate 16 07/31/18 15:50 Blood Pressure 111/72 07/31/18 15:50 O2 Sat (%) 96 07/31/18 15:50 O2 Delivery Mode Room Air Allergies/Adverse Reactions: ceftriaxone [From Rocephin] Allergy (Verified 07/31/18 15:48) sulfamethoxazole [From Bactrim] Allergy (Verified 07/31/18 15:48) trimethoprim [From Bactrim] Allergy (Verified 07/31/18 15:48) Home Medications: Medication Instructions Recorded Cortef 05/03/17 Cytomel 25 mcg (*) 05/03/17 Synthroid 05/03/17 Wellbutrin Xl 05/03/17 Prednisone 07/31/18 Departure - Departure Condition: Good
[2018-07-31] MEDS ORDERED: IBUPROFEN 600 MG TAB PO ONE (17:07)
[2018-07-31 17:50] VITALS: BP 112/67
== END 2018-07-31 17:55 | disposition home or self-care (01) ==
DX: F07.81 Postconcussional syndrome (principal)

== ENCOUNTER 2018-10-03 16:34 | Emergency (ER) | payer OTHER, BC | END 2018-10-03 20:24 | disposition home or self-care (01) ==

== ENCOUNTER 2018-10-05 14:00 | Inpatient (IN) | payer OTHER ==
[2018-10-05] MEDS ORDERED: ONDANSETRON DISINTEGRATING 4 MG TAB PO PRN (15:45)
[2018-10-05] MEDS ORDERED: IBUPROFEN 200 MG TAB PO PRN ×2 (16:16→22:19)
--- NOTE | 2018-10-05 17:29 | GHP ---
[f rep st] HISTORY AND PHYSICAL DATE OF ADMISSION: 10/05/2018 CHIEF COMPLAINT: Fever and headache. HISTORY OF PRESENT ILLNESS: The patient is a 53-year-old woman with a past medical history significa nt for CVID, currently getting IVIG every 6 weeks. She also has a history of chronic fatigue, depres jf, and hypothyroidism. She was in her usual state of health, which includes some chronic fatigue, until the end of July when she got hit in the head with a dental x-ray. She suffered a concussi on and has not felt well since then. This occurred in [place]. She flew home the next day and had a CT scan in the emergency room here which was okay. She was diagnosed with a concussion and suffers from headaches since then. At the beginning of September, she started to get more neck pain radiating to her head. At this time, she also developed a fever and a facial rash. She says the fevers can g et up to 102, associated with increasing fatigue, headaches and neck pain and diffusely weak. She howard s not had any specific joint pains, but has had myalgias. 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 A couple days ago she went to the emergency room for an evaluation of her fevers. They did blood cultures, which were negative; the CBC, which showed chroni c leukopenia; and an MRI of her brain and cervical spine, all of which were fairly unremarkable excep t for some cervical stenosis noted on her MRI. Last night, she had a fever up to 104, so she went to [facility] ER. She was not happy with their care and after a chest x-ray, she left [place]. She comes in today at the request of her primary care early childhood assistant, Dr. Fierro, for evaluation of her fevers of u nknown origin and headaches. REVIEW OF SYSTEMS: A comprehensive review of systems was done with pertinent positives and negatives in the HPI. PAST MEDICAL HISTORY: 1. CVID, on IVIG every 3 weeks. Her last dose was a week ago. 2. 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 3. Hypothyroidism, on replacement. 4. Depression, on Wellbutrin. 5. Chronic fatigue, currently on Valtrex and Coartem (malaria medication). ALLERGIES: To ceftriaxone, which causes anaphylaxis; Bactrim and erythromycin, which causes GI upset . FAMILY HISTORY: Mother with a stroke. Father is okay. SOCIAL HISTORY: She is they have 2 boys, ages 15 and 26. She does not smoke, drink alcohol, or smoke marijuana. She works. 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 She also likes to make jewelry with natural sto dino. PHYSICAL EXAMINATION: VITAL SIGNS: Temperature is 37.1, heart rate 83, blood pressure 98/60, respir ations. She is 95% on room air. GENERAL: She is a pleasant 53-year-old. She does not appear to be in distress. She is alert and or iented. Speech is clear and fluent. HEENT: Face is symmetric. Pupils equal. Extraocular movement s intact. Mucous membranes moist. NECK: Supple. No significant lymphadenopathy noted. Thyroid wi thin normal limits. HEART: Regular without murmur, gallop, or rub. LUNGS: Clear bilaterally witho ut wheeze, rhonchi, or rales. ABDOMEN: Soft, nontender, nondistended. EXTREMITIES: No clubbing, c yanosis, or edema. MUSCULOSKELETAL: No joint deformities or pain or tenderness. No atrophy. NEURO LOGIC: She moves all 4 extremities equally. SKIN: She does have kind of a discoid rash on her face . Her feet, her toes are slightly more red than the rest of her foot. PSYCHIATRIC: Normal mood. S he is appropriate. LABORATORY DATA: CBC shows a white count from 2 days ago, 2.22, with 58% neutrophils, hemoglobin 9.6 , with a platelet count of 158. Chemistry from 2 days ago shows normal electrolytes and renal function. Blood cultures drawn at that time are negative to date. MRI of her brain with and without contrast is normal. MRI of her cervical spine shows no acute findings. Moderate to severe left and minimal right neural foraminal stenosis, C5-6. She was at [facility] and had a chest x-ray done which was reportedly normal. ASSESSMENT AND PLAN: 1. A 53-year-old with a history of common variable immunodeficiency is admitted with fever of unknow n origin for a month, associated with neck pain and headaches after being hit in the head with a dent al x-ray 2 months ago. Generalized symptoms include myalgias and fatigue. Unclear etiology at this time. Overall, it seems more like a rheumatologic type etiology of her fevers. She does have associ ated leukopenia and anemia, which has been chronic. No obvious source of fever is found. I did disc uss the case in detail with Dr. Craig Chapman from Infectious Disease, as well as her primary immunologis t, Dr. Fierro. Plan will be to admit her to the hospital for further evaluation. We will start wit h general serologic workup tonight, as she does not appear toxic, to include repeat blood cultures, r espiratory panel, CBC, CMP, including liver function tests, and some rheumatologic factors including FARHAN and double-stranded DNA, as well as inflammatory markers. If there is nothing obvious with that evaluation, could consider LP in the a.m. given her headache and neck pain. Further evaluation could include CT scans. The patient's primary care provider did request a neurologic evaluation; however, at this time, we will first evaluate her fever and possibly LP if no cause for headache is found and she continues to suffer. Would be appropriate to get a Neurology consult at that time. 2. Common variable immune deficiency, on IVIG, treated by her early childhood assistant. She is up-to-date on he r infusions. I do not have any details on her diagnosis of this. 3. Hypothyroidism, on replacement. She is followed by Dr. Bradford. Will repeat a TSH while she i s here. 4. Depression. Continue Wellbutrin. 5. Chronic fatigue syndrome, currently on Valtrex for "elevated EBV levels" to help her fatigue, as well as elevated EBV level. She is also on Coartem. After discussion with Dr. Chapman, will continue t he Valtrex and hold the Coartem at this time. Unclear if she is experiencing some adverse side effec ts from that. 6. Deep vein thrombosis prophylaxis. Patient is low risk. If she is here greater than 24 hours, co uld consider adding a low-molecular weight heparin for DVT prophylaxis. Her primary early childhood assistant is Dr. Fierro. His cell phone number is [phone] and his office number is [phone]. He is happy to discuss the case in detail if we have any questions. /[id number]/MODL
[2018-10-05 17:49] LABS: CREATINE KINASE 77 IU/L (0-156)
[2018-10-05 18:39] LABS: PLATELET COUNT 132 10^3/uL (150-400)
[2018-10-05] MEDS: HYDROCODONE/APAP 5/325 TAB PO PRN ×2 (19:22→20:10)
[2018-10-05] MEDS: oxyCODONE IR 5 MG TAB PO PRN (23:22)
[2018-10-06 05:16] LABS: PLATELET COUNT 141 10^3/uL (150-400)
[2018-10-06] MEDS: NAPROXEN SODIUM 220 MG TAB PO PRN ×2 (05:24→18:26)
--- NOTE | 2018-10-06 06:07 | GCON ---
[f rep st] CONSULTATION INFECTIOUS DISEASES CONSULTATION DATE OF CONSULTATION: 10/05/2018 REFERRING PHYSICIAN: Dionne Vazquez MD REASON FOR CONSULTATION: Fever, headache, and leukopenia. HISTORY OF PRESENT ILLNESS: Patient is a 53-year-old woman with a past medical history of common variable immunodeficiency, receiving IVIG every 3 weeks, whom I am asked to see in consultation for a 4-week history of fever and headache. The patient describes having a crown fall off in July while in [place]. While getting an x-ray, she sustained a head injury when the x-ray device hit her head. She was seen in [place] the following day, at which point in time a CT scan of the brain was performed, which did not show any evidence of fracture or acute intracranial abnormality. Findings were felt to be compatible with a concussion. Subsequently, she has had significant headaches. In September, her headaches also began to radiate up and down her neck. Over the last 4 weeks, she describes having fever and chills as well as a rash in a malar distribution. Temperatures have been more significant over the last 2 weeks. She notes temperatures are typically daily and can be as high as 102. She does have associated myalgias, arthralgias, and chills but no rigors. She has had significant increase in fatigue associated with the above findings. Previously , she has undergone skin biopsy for a rash over her chest, which was consistent with discoid lupus. The patient also notes that she takes Valtrex daily for EBV suppression and has been taking Coartem as an immunomodulatory drug. She has not taken this over the last week. More recently, laboratories have shown that the patient has developed leukopenia as well. She was seen in the ER on , at which point in time, blood cultures were obtained and have shown no growth. Laboratory testing revealed a white blood cell count of 2.2 and a hematocrit of 28.9 with an absolute neutrophil count of approximately 1290. The patient does describe having a recent course of levofloxacin for possible sinusitis, which ended approximately 1 week ago. She does note that she has some nasal rhinorrhea, which is yellow in nature. She also notes that she recently increased her Synthroid from 25 mcg to 75 mcg daily. The patient does have concerns about possible infection with Anna. She describes having positive Anna antibodies previously. The patient also had MRI of the brain and cervical spine performed at her ER visit of 10/03/2018, with the brain MRI showing no evidence of leptomeningeal enhancement or sinus disease. Cervical spine MRI showed moderate to severe left and minimal right neural foraminal stenosis at C5-6. Yesterday, the patient developed a temperature to 104 and was evaluated at [facility]. However, she was unhappy with her care and declined admission. Her primary director of training today recommended that she be admitted for further evaluation of her fever and headache with consideration for lumbar puncture as part of her ongoing evaluation. The patient denies any other travel outside of [place]. There are pet dogs at home. No other unusual animal exposures. She notes she has previously had a positive FARHAN with a speckled pattern. Given the above findings, I am now asked to assist in her ongoing management. PAST MEDICAL HISTORY: Common variable immunodeficiency with IVIG replacement q.3 weeks, discoid lupus, hypothyroidism, chronic fatigue, prior history of Lyme disease treated in [place] with IV medications, depression. PAST SURGICAL HISTORY: Appendectomy. CURRENT MEDICATIONS: Valtrex 1 g orally daily, was previously taking Coartem daily, Synthroid replacement at 75 mcg orally daily, IVIG replacement. ALLERGIES: Ceftriaxone associated with anaphylaxis; Bactrim and erythromycin associated GI upset which represent intolerance. SOCIAL HISTORY: The patient does not smoke, drink alcohol, or use drugs. Travel and animal history as outlined above. FAMILY HISTORY: Mother with stroke. REVIEW OF SYSTEMS: Outside that noted in the HPI, remainder of 10-system review is unremarkable. PHYSICAL EXAMINATION: VITAL SIGNS: Temperature 37.3, heart rate 87, respiratory rate 16, blood pressure 103/60, oxygen saturation 95% on room air. GENERAL: Patient is well nourished, well developed, in no acute distress. She appears nontoxic. HEENT: There are erythematous patches, which are slightly raised in a malar distribution; there is no conjunctival injection, scleral icterus, or conjunctival petechiae. Oropharynx shows moist mucous membranes with dentition in good repair. No oral ulcerations noted. No nasal discharge present. No sinus tenderness to palpation. NECK: Supple without palpable lymphadenopathy. No meningismus present. CHEST: Clear to auscultation bilaterally without adventitious sounds. Respiratory effort is normal. CARDIOVASCULAR: Regular rate and rhythm without murmurs, gallops, or rubs. ABDOMEN: Soft, nontender, nondistended. There is no palpable organomegaly. Bowel sounds are present. MUSCULOSKELETAL: No cyanosis, clubbing, or edema. No joint abnormalities noted. SKIN: See HEENT exam. No other rashes noted. No stigmata of endocarditis. Skin is warm and dry to touch. LYMPHATICS: Shotty anterior cervical lymphadenopathy present. No supraclavicular nodes noted. NEUROLOGIC: Patient is alert and interacts appropriately with the examiner. Cranial nerves 2-12 are grossly intact. Sensation is grossly intact. Muscle tone and bulk are normal. LABORATORY DATA: White blood cell count 2.2, hematocrit 28.9, platelets 158, neutrophils 36%, bands 22%, lymphocytes 36%, absolute neutrophil count 1290. Serum creatinine 0.8, CRP 15.5. Flu PCRs on 10/03/2018, are negative. RSV PCR negative. Blood cultures x2 sets on 10/03/2018, no growth. MRI of the brain and cervical spine as outlined above. IMPRESSION: Fever of unknown origin: The patient has 4 weeks of fever without identified etiology. In the setting of leukopenia and facial rash, primary concern would be for possible autoimmune disease, such as lupus. Other autoimmune diseases would also be of consideration. Viral syndrome also would be in the differential diagnosis, and patients with chronic variable immunodeficiency syndrome can develop chronic infection due to enterovirus including meningitis. This would be less likely in the setting of ongoing immunoglobulin replacement, however. Subacute bacterial endocarditis with loss of dental crown in July also of consideration although blood cultures have remained no growth to date. With concomitant headache, chronic meningitis, which has a broad differential diagnosis, is also of consideration. In the setting of travel to [place], coccidioidomycosis would be also in the differential diagnosis. Discussed with patient the role of lumbar puncture, indicating that I feel like initial evaluation for autoimmune etiologies can be undertaken as well as further microbiologic assessment prior to proceeding. This still may be required as evaluation for her fever of unknown origin with chronic headache. Additionally, have discussed that further evaluation for fever of unknown origin often includes CT scan of chest, abdomen, and pelvis. Echocardiogram will also be of consideration. RECOMMENDATIONS: 1. Observe off antibiotics. 2. Blood cultures x2 sets. 3. Check FARHAN and ANCA. 4. Check CPK. 5. Check respiratory pathogen panel by PCR. 6. Agree with plans for [id number] DNA testing. 7. Further evaluation dependant on above findings and clinical course with consideration for lumbar puncture and potentially CT scan of chest, abdomen, pelvis as well as echocardiogram. 8. We will check Coccidioides antibody. 9. Stop coartem. Thank you for this consultation. We will continue to follow the patient with you. /[id number]/MODL MTDD
[2018-10-06] MEDS ORDERED: HYDROmorphONE/DILAUDID 1 MG/ML INJ IVP ONE (08:39)
[2018-10-06] MEDS: ONDANSETRON 4 MG/2 ML VIAL IVP PRN ×3 (08:47→20:50)
--- NOTE | 2018-10-06 09:17 | HOSPPROG ---
Hospitalist Progress Note Assessment/Plan: 53 yo female with h/o CVID presents with 4 weeks of fevers, headaches, no source identified. Fever of unknown origin - She is neutropenic with ANC 960 this am. There is suspicion for auto-immune etiology with h/o lupus. Pt warrants LP given persistent CRUMP, neck pain and fevers. Brain and C-spine MRI with and without contrast mostly unremarkable (C5-6 neuroforaminal stenosis likely unrelated). Appreciate ID input. No urinary or respiratory symptoms (RVP neg). -LP today, will send CSF for GS/Cx, cell count, pro, glu, as well as meningoencephalitis panel ([facility]) -if LP unrevealing for source, consider CT chest/abd/pelvis and echo prior to initiating steroids for possible autoimmune etiology -deferring atbx at this point, will d/w ID if Cefepime indicated with relative neutropenia (hold off for now) -BCx's pending, / BCx's ngtd. Headaches - as above, plan for LP -pain control, add IV dilaudid (pt states oral oxy is ineffective and she refused it this am) CVID - followed by Dr. Fierro bariatric coordinator (cell: [phone]), received q3w IVIG. Recently took low dose Prednisone 2 mg daily with last IVIG infusion. She has been on Coartem, immunomodulator. -cont suppressive valtrex Discoid lupus - may warrant steroids, further w/u first as above Hypothyroidism - TSH 35, low T3. Pt recently increased Synthroid from 25 mcg to 75 mcg -cont current increased synthroid dose, rpt TSH in 2-3 weeks Pancytopenia - ANC 960, follow Full code DVT PPLX - Lovenox, hold today with LP planned Dispo - cont inpt, ADD uncertain Subjective: Pt c/o ongoing fevers and severe headache, originates in her neck and b/l frontal region as well. +photophobia. No vision changes. No respiratory symptoms. Mild nausea, no abdominal pain or urinary symptoms. Objective: Vital Signs Temp Pulse Resp BP Pulse Ox 38.9 C H 99 16 112/70 92 10/06/18 08:00 10/06/18 08:00 10/06/18 08:00 10/06/18 08:00 10/06/18 08:00 Microbiology 10/05/18 17:00 Respiratory Panel (PCR) - Final Nasal, Sinus - Swab No Organism Detected By Pcr Laboratory Results 10/06/18 05:00 10/06/18 05:00 10/05/18 10/06/18 10/07/18 05:59 05:59 05:59 Intake Total 500 Balance 500 - Physical Exam Constitutional: no apparent distress Eyes: PERRL Ears, Nose, Mouth, Throat: moist mucous membranes Cardiovascular: regular rate and rhythym, no murmur, rub, or gallop Respiratory: no respiratory distress, clear to auscultation Gastrointestinal: normoactive bowel sounds, soft, non-tender abdomen Skin: warm Musculoskeletal: full muscle strength Neurologic: AAOx3 Psychiatric: interacting appropriately ICD10 Worksheet Patient Problems: Problems Problem Status Onset Foreign body of right index finger Acute Infection associated with catheter Acute
[2018-10-06] MEDS: HYDROmorphONE/DILAUDID 1 MG/ML INJ IVP PRN ×3 (09:59→20:41)
[2018-10-06] MEDS: ACETAMINOPHEN 325 MG TAB PO PRN ×2 (10:00→20:05)
[2018-10-06 10:24] LABS: INR 0.98 (0.83-1.16); PROTIME(PATIENT) 12.6 SEC (12.0-15.0)
--- NOTE | 2018-10-06 10:42 | PCMIDPN ---
Assessment/Plan: Assessment/Plan: * Fever, headache and cytopenia: No clearly defined etiology with considerations including autoimmune disease versus infectious etiology versus malignancy (seems less likely). Blood cultures from 10/03/2018 remain no growth to date. Given persistent headache and neck pain, will proceed with lumbar puncture today to assess for chronic meningitis. Will send CSF for meningoencephalitis panel to [facility] which includes HSV, enterovirus , standard bacterial pathogens, and cryptococcus as well as additional viral pathogens. If cellularity present, will also obtain flow cytometry. Will ask Radiology to obtain enough CSF such that additional studies could be ordered based on cell count, protein and glucose. Other serologic data as outlined yesterday is currently pending including FARHAN, ANCA and Coccidioides antibody. May ultimately require hematologic and rheumatologic consultation as well to assess for underlying hematologic or rheumatologic disorder. Patient's ANC is approximately 960 - favor continued observation off antibiotics given chronicity of findings and that neutropenic fever is typically less problematic when etiology other than chemotherapy induced. Time spent, greater than 35 min, which greater than half was spent in education/ counseling/coordination of care related to fever of unknown origin with underlying cytopenia and headache. Care coordinated with Dr. Elizondo. 10/06/18 10:37 Subjective: Patient with fever and worsening headache/neck pain over course of shirring tender. Headache now improved after receiving Dilaudid. Objective: Vital Signs Temp Pulse Resp BP Pulse Ox 38.8 C H 99 16 112/70 92 10/06/18 09:40 10/06/18 08:00 10/06/18 08:00 10/06/18 08:00 10/06/18 08:00 Microbiology 10/05/18 17:00 Respiratory Panel (PCR) - Final Nasal, Sinus - Swab No Organism Detected By Pcr Laboratory Results 10/06/18 05:00 10/06/18 05:00 10/05/18 10/06/18 10/07/18 05:59 05:59 05:59 Intake Total 500 Balance 500 ESR 28 MM/HR (0-30) 10/05/18 18:20 C-Reactive Protein 9.0 mg/L (<10.0) 10/05/18 17:00 No antibiotic therapy T-max 38.9 degrees Blood cultures x2 10/03/2018 no growth; 10/05/2018 pending Laboratory Tests 0310/05/18 10/05/18 17:00 17:00 17:00 ESR VBG Lactic Acid Total Bilirubin AST ALT Alkaline Phosphatase C-Reactive Protein 9.0 Albumin FARHAN Screen Pending Proteinase 3 (PR3) Pending Myeloperoxidase Ab Pending Anti-ds DNA IgG Ab Pending Coccidioides Ab (CF) Coccidioides IgM Titer 10/05/18 10/06/18 10/06/18 18:20 05:00 05:00 ESR 28 VBG Lactic Acid Total Bilirubin 0.2 AST 48 H ALT 21 Alkaline Phosphatase 58 C-Reactive Protein Albumin 3.2 L FARHAN Screen Proteinase 3 (PR3) Myeloperoxidase Ab Anti-ds DNA IgG Ab Coccidioides Ab (CF) Pending Coccidioides IgM Titer Pending 10/06/18 09:56 ESR VBG Lactic Acid 0.5 L Total Bilirubin AST ALT Alkaline Phosphatase C-Reactive Protein Albumin FARHAN Screen Proteinase 3 (PR3) Myeloperoxidase Ab Anti-ds DNA IgG Ab Coccidioides Ab (CF) Coccidioides IgM Titer - Physical Exam General Appearance: alert, apparent distress (Mild distress secondary to pain), non-toxic EENT: No scleral icterus, No thrush, No conjunctival petechiae Respiratory: lungs clear, No respiratory distress Neck: supple, No meningismus Cardiac/Chest: regular rate, rhythm, No systolic murmur Extremities: non-tender, No inflammation Abdomen: non-tender, No distended Skin: rash (Slightly raised erythematous, patchy rash in malar distribution) Neuro/Psych: No confused - Line/s other Lines: other (Right subclavian tunneled single lumen catheter present without erythema), No drainage, No erythema ICD10 Worksheet Patient Problems: Problems Problem Status Onset Foreign body of right index finger Acute Infection associated with catheter Acute
[2018-10-06] MEDS ORDERED: LIDOCAINE 1% 300 MG/30 ML SDV ONE (12:28)
[2018-10-06] MEDS ORDERED: FLUMAZENIL 0.5 MG/5 ML MDV IVP PRN (12:36)
[2018-10-06] MEDS ORDERED: fentaNYL 100 MCG/2 ML INJ IVP PRN (12:36)
[2018-10-06] MEDS ORDERED: MIDAZOLAM 2 MG/2 ML VIAL IVP PRN (12:36)
[2018-10-06] MEDS ORDERED: MEPERIDINE 25 MG/ML SYR IVP PRN (12:36)
[2018-10-06] MEDS ORDERED: NALOXONE HCL 0.4 MG/ML INJ IVP PRN (12:36)
[2018-10-06] MEDS ORDERED: NS 1,000 ML IV SCH (12:45)
--- NOTE | 2018-10-06 14:33 | PDRADPN ---
Radiology Procedure Note Date of Procedure: 10/06/18 Radiologist: Katia Villareal Anesthesia: IV Sedation Pre-op Diagnosis: concussion Post-op Diagnosis: same Indication: needs csf for evaluation Procedure: LP Finding(s): 19cc clear CSF removed Inf/Abcess present in the surg proc area at time of surgery?: No
--- NOTE | 2018-10-06 14:33 | PDPROPOC ---
Sedation Plan of Care Sedation Plan of Care: vital signs stable, mental status noted, patient educated of risks, benefits, alternatives, patient can tolerate sedation ASA Classification: ASA 2 Planned drugs: fentanyl, midazolam Mallampati Score: Class 1 Mallampati Reference Image: Patient passed 3-3-2 rule?: Yes
[2018-10-06] MEDS: buPROPion XL 150 MG TAB PO SCH (18:28)
[2018-10-06] MEDS: oxyCODONE IR 5 MG TAB PO PRN (20:12)
[2018-10-06] MEDS: valACYclovir 500 MG TAB PO SCH (20:41)
[2018-10-06] MEDS: LEVOTHYROXINE 75 MCG TAB PO SCH (20:42)
[2018-10-07] MEDS: ONDANSETRON 4 MG/2 ML VIAL IVP PRN ×5 (02:15→23:13)
[2018-10-07] MEDS: HYDROmorphONE/DILAUDID 1 MG/ML INJ IVP PRN ×4 (02:37→23:14)
[2018-10-07 03:44] LABS: PLATELET COUNT 134 10^3/uL (150-400)
[2018-10-07] MEDS: ACETAMINOPHEN 325 MG TAB PO PRN ×3 (08:35→23:19)
[2018-10-07] MEDS: ENOXAPARIN 40 MG/0.4 ML SYR SC SCH (08:45)
[2018-10-07] MEDS: oxyCODONE IR 5 MG TAB PO PRN ×2 (10:20→18:24)
[2018-10-07] MEDS: buPROPion XL 150 MG TAB PO SCH (10:20)
--- NOTE | 2018-10-07 10:26 | PCMIDPN ---
Assessment/Plan: Assessment/Plan: * Fever, headache and cytopenia: No clearly defined etiology with considerations including autoimmune disease versus infectious etiology versus malignancy (seems less likely). Blood cultures from 10/03/2018 and 10/05/2018 remain no growth to date. Lumbar puncture without significant pleocytosis and with normal protein and mild decrease in glucose. Meningoencephalitis panel also negative for organisms. Reviewed labs with her that were obtained by her dat instructor 1 day after receiving IVIG which showed positive FARHAN at 1:360 and positive anti SSA antibody (not clear if these are influenced by receipt of IVIG ). Rheumatologic evaluation here is currently pending. 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 Based on this finding, will obtain rheumatologic consultation and will also ask Hematology to evaluate in the setting of pancytopenia. Will hold off on proceeding with CT scan of chest, abdomen and pelvis pending their evaluations. Continue observation off antibiotic therapy. * Hypotension: a.m. Cortisol added to labs to ensure no evidence of adrenal insufficiency which also could contribute to fever. Time spent, greater than 35 min, which greater than half was spent in education/ counseling/coordination of care related to fever of unknown origin with underlying cytopenia and headache including plan of care with discussion of rheumatology and hematology consultations. Care coordinated with Dr. Wayne. 10/07/18 10:22 10/07/18 10:32 10/07/18 10:34 Subjective: Patient complains of headache and neck pain which is more prominent while lying flat. No significant fever overnight. Continues to note episodes of Raynaud's. Objective: Vital Signs Temp Pulse Resp BP Pulse Ox 37.7 C 94 16 82/47 L 94 10/07/18 08:36 10/07/18 07:30 10/07/18 07:30 10/07/18 07:30 10/07/18 07:30 Microbiology 10/06/18 14:26 Gram Stain - Final Cerebral Spinal Fluid Laboratory Results 10/07/18 03:40 10/06/18 05:00 10/06/18 10/07/18 10/08/18 05:59 05:59 05:59 Intake Total 500 350 Balance 500 350 ESR 28 MM/HR (0-30) 10/05/18 18:20 C-Reactive Protein 9.0 mg/L (<10.0) 10/05/18 17:00 No antibiotic therapy T-max 37.7 degrees Laboratory Tests 10/06/18 14:26 CSF Supernatant COLORLESS CSF RBC 2 H CSF Glucose 43 L CSF Total Protein 40 CSF Gram stain negative, no growth to date CSF meningoencephalitis panel no organisms Blood cultures 10/03/2018 and 10/05/2018 no growth Labs reviewed which patient had drawn prior to admission on her computer today showing FARHAN of 1:320 and positive anti SSA antibody; antibodies were negative for SSB, Sjogren's, VESSEL MASTER, Bearden, and double-stranded DNA - Physical Exam General Appearance: alert, non-toxic EENT: No scleral icterus, No thrush, No conjunctival petechiae Respiratory: lungs clear, No respiratory distress Cardiac/Chest: regular rate, rhythm, No systolic murmur Extremities: No inflammation Abdomen: non-tender, No distended Skin: rash (No change in facial rash) ICD10 Worksheet Patient Problems: Problems Problem Status Onset Foreign body of right index finger Acute Infection associated with catheter Acute
--- NOTE | 2018-10-07 10:47 | HOSPPROG ---
Hospitalist Progress Note Assessment/Plan: 53 yo female with h/o CVID presents with 4 weeks of fevers, headaches, no source identified. #FUO: Less likely infectious or malignancy related. Concern for rheumatologic process/CTD. +FARHAN (titer pending). Reportedly had + SSA antibodies as outpatient. - LP without pleocytosis, meningoencephalitis panel neg, f/u final CSF cultures - Blood cultures without growth (3/3 and 3/5 sets) - Defer antibiotics - Rheumatology and heme/onc consulted today, appreciate assistance - If pursue steroids as tx, consider CT c/a/p prior to this #Pancytopenia: ANC 900-1000. Suspect marrow suppression from whatever systemic process is driving #1. - Hematology consultation, appreciate recs #Headaches, neck pain: Related to above - IV dilaudid, oxycodone PRN #CVID: Receives q3w IVIG, mostly recently last week. 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 #Hypotension: Perfusing well. AM cortisol level ok, doubt AI. #Hypothyroidism: TSH >35, free T4 nl, low T3. Recently increased LT4 dose - Continue synthroid at 75mcg/day, needs repeat TSH in 2-3 weeks VTE ppx: LMWH Code: full Dispo: Remain inpatient, ADD uncertain Subjective: Bad head/neck pain overnight but much better controlled this afternoon. Denies nausea. Having low grade temps intermittently. Objective: Vital Signs Temp Pulse Resp BP Pulse Ox 37.7 C 94 16 82/47 L 94 10/07/18 08:36 10/07/18 07:30 10/07/18 07:30 10/07/18 07:30 10/07/18 07:30 Microbiology 10/06/18 14:26 Gram Stain - Final Cerebral Spinal Fluid Laboratory Results 10/07/18 03:40 10/06/18 05:00 10/06/18 10/07/18 10/08/18 05:59 05:59 05:59 Intake Total 500 350 Balance 500 350 PT 12.6 SEC (12.0-15.0) 10/06/18 09:58 INR 0.98 (0.83-1.16) 10/06/18 09:58 - Physical Exam Constitutional: appears nourished Eyes: PERRL, anicteric sclera Ears, Nose, Mouth, Throat: moist mucous membranes Cardiovascular: regular rate and rhythym, no murmur, rub, or gallop Respiratory: no respiratory distress, no rales or rhonchi, clear to auscultation Gastrointestinal: normoactive bowel sounds, soft, non-tender abdomen, no palpable masses Genitourinary: no bladder fullness, no bladder tenderness, no renal bruits Skin: other (erythema on bilateral cheeks) Musculoskeletal: full muscle strength, no muscle tenderness, normal joint ROM Neurologic: AAOx3 Psychiatric: interacting appropriately ICD10 Worksheet Patient Problems: Problems Problem Status Onset Foreign body of right index finger Acute Infection associated with catheter Acute
--- NOTE | 2018-10-07 11:02 | ASMTCMCOM ---
CM Note CM Note Notes: Met with Pt. Gissel is a 53yr old admitted with Headache, fever and neutropenia. History of CVID, Discoid Lupus, Depression & Chronic Fatigue. Pt reports Pain management has been an issue. Ongoing tests to determine causes. Pt is and has a 15yr & 26yr old boys for support. CM will continue to monitor needs. Plan: Likely Home Independently Date Signed: 10/07/2018 11:01 AM Electronically Signed By:Yoli Coon
--- NOTE | 2018-10-07 11:16 | PDMN ---
Medical Necessity Medical necessity: MCG: M160 sepsis and other febrile illness A-2 days; 53yo F with h/o CVID getting IVIG q 6 weeks- presents with 4 weeks fever, CRUMP, neutropenic with ANC of 960, BCxs pending, hypothyroidism ,. PMHx; CVID, discoid upus, hypothyroidism, depression , chronic fatigue, status changed to INPT 10/06/18 for ongoing med nec care > 2 MN. further monitoring, eval and tx needed. pt with ongoing fever, severe CRUMP, LP pending,
[2018-10-07] MEDS: NS 1,000 ML IV SCH ×2 (12:37→21:28)
--- NOTE | 2018-10-07 21:24 | GCON ---
[f rep st] CONSULTATION HEMATOLOGY CONSULTATION DATE OF CONSULTATION: 10/07/2018 REASON FOR CONSULTATION: 1. Neutropenia. 2. Anemia. 3. Thrombocytopenia. HISTORY OF PRESENT ILLNESS: The patient is a pleasant 53-year-old female with a complicated medical history. She reports feeling generally unwell for several years. She was previously living in [facility] and was seen by multiple physicians in [place]. She was ultimately diagnosed with Lyme dise ase and underwent treatment. Her symptoms did not improve. She returned to [place]. She was seen by an worship pastor and diagnosed with common variable immunodeficiency. She was started on IVIG ther apy initially every 6 weeks, more recently increased to every 3 weeks. She reports that her symptoms of fatigue and generalized achiness improved somewhat when starting IVIG. She reports approximately 1 month of intermittent headaches, generalized myalgias and intermittent fe vers. She was admitted to the hospital with worsening symptoms. She was noted to have significant n eutropenia and normocytic normochromic anemia upon presentation. She reports that she has been told she has been anemic in the past but has never had a formal hematology evaluation. She has undergone a lumbar puncture which reveals no evidence of a bacterial process. She is due to be evaluated by a travel nurse later today. PAST MEDICAL HISTORY: 1. Common variable immunodeficiency, on chronic IVIG therapy. 2. Recent history of discoid lupus diagnosed with skin biopsy. 3. Hypothyroidism. 4. Chronic fatigue. 5. History of Lyme disease, treated in [place]. 6. Depression. PAST SURGICAL HISTORY: Appendectomy. FAMILY MEDICAL HISTORY: Patient denies any known family history of autoimmune disorders. Her mother had a CVA. SOCIAL HISTORY: The patient lives locally. She is to her . She is a nonsmoker. She does not drink alcohol. ALLERGIES: Ceftriaxone, Bactrim and erythromycin. REVIEW OF SYSTEMS: As outlined above. Additionally reports an intermittent rash, most recently over lying her cheeks. She denies joint aches. She denies abdominal pain or bloating. Denies chest pain , cough, or exertional dyspnea. Remainder 10-point review of systems negative. PHYSICAL EXAM: One [facility] nursing staff present for entire exam. GENERAL: The patient is alert, katiana ented, and appropriate. HEENT: There is no evidence of scleral icterus. She has a macular rash acr oss her cheeks. ABDOMEN: Soft, nontender, nondistended. Spleen is nonpalpable. SKIN: No visible rash on the extremities or trunk. EXTREMITIES: No extremity swelling or edema. NEURO: Patient is alert, oriented, and appropriate. LABORATORY STUDIES: White count 1.62, hemoglobin 7.7, hematocrit 22.8, MCV 94.6, platelet count 134, 000, absolute neutrophil count is 950, absolute lymphocyte count is 540. Sodium 138, potassium 4.3, chloride 106, bicarb 26, BUN 16, creatinine 0.7, calcium 8.2, alk phos 58, albumin 3.2. TSH is 39.5. FARHAN screen is elevated at 2.49. IMPRESSION: 1. Fever of unknown etiology. 2. Cutaneous rash. 3. Reported history of discoid lupus. 4. Reported history of common variable immunodeficiency. 5. Pancytopenia. The patient is a pleasant 53-year-old female who presents with a constellation of symptoms suggestive of an underlying rheumatologic disorder. I have a fairly low suspicion of a primary bone marrow dis order in this case. I agree with the plan for rheumatologic consultation. I favor holding off on sal[place] ne marrow biopsy and aspirate for now. I have sent a CBC, iron studies, ferritin, B12 level, serum protein electrophoresis, quantitative imm unoglobulins, haptoglobin, and Justen test. It is unclear whether the patient has ever been tested f or HIV. I will discuss this with the patient, and if this has not been done, I think it would be shun sonable to test for this as well given the presence of pancytopenia and the reported history of immun e deficiency. I have also ordered an ultrasound of the spleen to exclude splenomegaly which is often associated wit h underlying rheumatologic disorder. Our service will continue to follow the patient, and if additional testing is inconclusive, I think a bone marrow biopsy and aspirate could be considered at that time. The plan was discussed with the tip cortez. Her questions were answered. I have discussed her case with Dr. Chapman of Infectious Disease. Total time for today's visit was approximately 50 minutes of which greater than 50% was spent in coun seling and care coordination. /[id number]/MODL
[2018-10-07] MEDS: valACYclovir 500 MG TAB PO SCH (21:26)
[2018-10-07] MEDS: LEVOTHYROXINE 75 MCG TAB PO SCH ×2 (21:26→22:58)
[2018-10-08] MEDS: ONDANSETRON 4 MG/2 ML VIAL IVP PRN ×3 (07:51→21:35)
[2018-10-08] MEDS: HYDROmorphONE/DILAUDID 1 MG/ML INJ IVP PRN ×3 (07:52→21:40)
[2018-10-08] MEDS: ENOXAPARIN 40 MG/0.4 ML SYR SC SCH (09:32)
[2018-10-08] MEDS: buPROPion XL 150 MG TAB PO SCH (10:48)
--- NOTE | 2018-10-08 11:49 | HOSPPROG ---
Hospitalist Progress Note Assessment/Plan: 53 yo female with CVID presents with 4 weeks of fevers, headaches of unclear etiology. #FUO: Less likely infectious or malignancy related. Moreso suspect rheumatologic process. Interestingly, she has been on Coartem; per [employer] review, up to 25-29% of patients who take this medication get fevers and headaches. The half life is 144 hours. - Normal FARHAN titer here, reportedly had titer 1:320 as outpatient, also had + SSA antibodies - LP without pleocytosis, meningoencephalitis panel neg, CSF cultures negative - Blood cultures without growth (3/3 and 3/5 sets) - Rheumatology consulted. Meets criteria for SLE. Plan to initiate IV steroids. Checking AM cortisol, T-spot. - Plan to initiate solumedrol 60mg IV tomorrow AM after cortisol level returns - She is no longer on Coartem - Check C3/C4 levels (send out labs) #Pancytopenia: Suspect marrow suppression from process driving #1. - Hematology consultation, appreciate recs - SPEP without monoclonal spike, CSF flow cytometry negative, HIV negative #Headaches, neck pain: Related to above - IV dilaudid, oxycodone PRN #CVID: Receives q3w IVIG, mostly recently last week. Followed by Dr Fierro ( desulfurizer hand, cell [phone]) #Mild splenomegaly: Likely related to SLE. 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 #Hypotension: Perfusing well. - Check AM cortisol #Hypothyroidism: TSH >35, free T4 nl, low T3. Recently increased LT4 dose - Continue synthroid at 75mcg/day, needs repeat TSH in 2-3 weeks VTE ppx: LMWH Code: full Dispo: Remain inpatient, ADD uncertain Subjective: Still with waxing and waning headaches and low grade fevers. Objective: Vital Signs Temp Pulse Resp BP Pulse Ox 37.3 C 86 20 111/68 95 10/08/18 11:23 10/08/18 11:23 10/08/18 11:23 10/08/18 11:23 10/08/18 11:23 Microbiology 10/06/18 14:26 Gram Stain - Final Cerebral Spinal Fluid Laboratory Results 10/07/18 03:40 10/06/18 05:00 10/07/18 10/08/18 10/09/18 05:59 05:59 05:59 Intake Total 350 3059 Balance 350 3059 PT 12.6 SEC (12.0-15.0) 10/06/18 09:58 INR 0.98 (0.83-1.16) 10/06/18 09:58 - Physical Exam Constitutional: appears nourished, uncomfortable Eyes: PERRL, anicteric sclera Ears, Nose, Mouth, Throat: moist mucous membranes, hearing normal, ears appear normal, no oral mucosal ulcers Cardiovascular: regular rate and rhythym, no murmur, rub, or gallop Respiratory: no respiratory distress, no rales or rhonchi, clear to auscultation Gastrointestinal: normoactive bowel sounds, soft, non-tender abdomen, no palpable masses Genitourinary: no bladder fullness, no bladder tenderness, no renal bruits Skin: other (small areas of erythema on bilateral cheeks) Musculoskeletal: full muscle strength Neurologic: AAOx3 Psychiatric: interacting appropriately ICD10 Worksheet Patient Problems: Problems Problem Status Onset Foreign body of right index finger Acute Infection associated with catheter Acute
--- NOTE | 2018-10-08 12:22 | PCMIDPN ---
Assessment/Plan: 1. Fever, headache and pancytopenia in immunocompromised host: No evidence at this point in time of a central nervous system infection. Constellation of symptoms and abnormalities felt possibly secondary to underlying lupus versus other autoimmune phenomenon. Interestingly, her FARHAN is negative here. Given plans for corticosteroids, agree with checking a.m. cortisol 1st. Will also check T spot, and urine histoplasmosis antigen. ( Patient lived in the [place] for 35 years) . Serum cryptococcal antigen is negative, and Coccidioides serology is pending. Query whether very long half- life of a component of Coartem could also be an exacerbating factor. (Fever/ headache quite common with this medication) Over 25 min spent with this patient today. Subjective: About the same today. She had spike driver this morning. Has several concerns about corticosteroids and other medications used to treat lupus. Objective: Vital Signs Temp Pulse Resp BP Pulse Ox 37.3 C 86 20 111/68 95 10/08/18 11:23 10/08/18 11:23 10/08/18 11:23 10/08/18 11:23 10/08/18 11:23 Microbiology 10/06/18 14:26 Gram Stain - Final Cerebral Spinal Fluid Laboratory Results 10/07/18 03:40 10/06/18 05:00 10/07/18 10/08/18 10/09/18 05:59 05:59 05:59 Intake Total 350 3059 Balance 350 3059 ESR 28 MM/HR (0-30) 10/05/18 18:20 C-Reactive Protein 9.0 mg/L (<10.0) 10/05/18 17:00 - Physical Exam General Appearance: alert, no apparent distress EENT: pharynx normal, No thrush Respiratory: lungs clear Cardiac/Chest: other (Patient has an indwelling catheter right chest without tenderness along the tunnel, or other abnormality. No redness.) Skin: other (Small, dime-sized erythematous plaques over malar area, perhaps 3 of them.) ICD10 Worksheet Patient Problems: Problems Problem Status Onset Foreign body of right index finger Acute Infection associated with catheter Acute
--- NOTE | 2018-10-08 14:42 | PDGENHP ---
History and Physical - Chief Complaint Rheumatologic consultation for possibnle autoimmune disease - History of Present Illness The patient is a pleasant 53yo F with a complex medical history, now admitted for fevers, generalized body aches, and headaches. She has had these symptoms for 4+ weeks. 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 Fierro, and a concussion in July when an x-ray machine fell on her head while getting dental treatment. Subsequently, she has experienced the above symptoms, as well as a new facial rash. She had labs done at her equipment washer's office, showing a positive FARHAN, 1:320, and SSA, as well as ESR 120 and pancytopenia. Her temperatures have gone up from 99.1 to 101.8 over the past few weeks, with no chest pain, shortness of breath, urinary symptoms. While she has generalized body aches and headaches, she has not noticed red, swollen joints. No oral ulcers. She does have chronic Raynaud's. 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 By her account, she has livedo reticularis after I described it and showed her pictures. She has had an extensive ID work-up, with negative testing thus far. Her LP and MRI brain did not reveal an infectious source. She has been seen by hematology, as well, with labs pending. History Information - Allergies/Home Medication List Allergies/Adverse Reactions: ceftriaxone [From Rocephin] Allergy (Verified 10/03/18 16:36) sulfamethoxazole [From Bactrim] Allergy (Verified 10/03/18 16:36) trimethoprim [From Bactrim] Allergy (Verified 10/03/18 16:36) Home Medications: Bupropion HCl [Wellbutrin Xl] 300 mg PO DAILY 10/05/18 [Last Taken Unknown] Levothyroxine [Synthroid 75 mcg (*)] 75 mcg PO HS 10/05/18 [Last Taken Unknown] valACYclovir [Valtrex (*)] 1,000 mg PO HS 10/05/18 [Last Taken Unknown] I have personally reviewed and updated: family history, medical history, social history, surgical history - Past Medical History Additional medical history: CVID, hypothyroidism, Lyme disease- treated in [place] - Surgical History Reports: appendectomy - Family History Additional family history: No known autoimmune conditions. - Social History Smoking Status: Never smoked Review of Systems Review of Systems: Constitutional: Reports: malaise Gastrointestinal: Reports: nausea Muscolosketal: Reports: joint pain, neck pain Skin: Reports: rash Neurological: Reports: headache Physical Exam Physical Exam: General: alert and oriented HEENT: no lymphadenopathy DERM: patchy erythematous macular rash on both cheeks, not butterfly rash MSK: No erythema, warmth or limited ROM due to pain or stiffness in elbows, wrists, MCPs, PIPs, knees, ankles, MTPs, PIPs Temp Pulse Resp BP Pulse Ox 37.3 C 86 20 111/68 95 10/08/18 11:23 10/08/18 11:23 10/08/18 11:23 10/08/18 11:23 10/08/18 11:23 O2 (L/minute) 2 Lab Data & Imaging Review 10/07/18 03:40 10/06/18 05:00 WBC 1.62 10^3/uL (3.80-9.50) L 10/07/18 03:40 RBC 2.41 10^6/uL (4.18-5.33) L 10/07/18 03:40 Hgb 7.7 g/dL (12.6-16.3) L 10/07/18 03:40 Hct 22.8 % (38.0-47.0) L 10/07/18 03:40 MCV 94.6 fL (81.5-99.8) 10/07/18 03:40 MCH 32.0 pg (27.9-34.1) 10/07/18 03:40 MCHC 33.8 g/dL (32.4-36.7) 10/07/18 03:40 RDW 15.7 % (11.5-15.2) H 10/07/18 03:40 Plt Count 134 10^3/uL (150-400) L 10/07/18 03:40 MPV 10.7 fL (8.7-11.7) 10/07/18 03:40 Neut % (Auto) 58.7 % (39.3-74.2) 10/07/18 03:40 Lymph % (Auto) 33.3 % (15.0-45.0) 10/07/18 03:40 [place] % (Auto) 7.4 % (4.5-13.0) 10/07/18 03:40 Eos % (Auto) 0.0 % (0.6-7.6) L 10/07/18 03:40 Baso % (Auto) 0.0 % (0.3-1.7) L 10/07/18 03:40 Nucleat RBC Rel Count 0.0 % (0.0-0.2) 10/07/18 03:40 Absolute Neuts (auto) 0.95 10^3/uL (1.70-6.50) L 10/07/18 03:40 Absolute Lymphs (auto) 0.54 10^3/uL (1.00-3.00) L 10/07/18 03:40 Absolute Monos (auto) 0.12 10^3/uL (0.30-0.80) L 10/07/18 03:40 Absolute Eos (auto) 0.00 10^3/uL (0.03-0.40) L 10/07/18 03:40 Absolute Basos (auto) 0.00 10^3/uL (0.02-0.10) L 10/07/18 03:40 Absolute Nucleated RBC 0.00 10^3/uL (0-0.01) 10/07/18 03:40 Immature Gran % 0.6 % (0.0-1.1) 10/07/18 03:40 Seg Neutrophils % 45.0 % 10/05/18 18:20 Band Neutrophils % 3.0 % 10/05/18 18:20 Lymphocytes % 44.0 % 10/05/18 18:20 Monocytes % 7.0 % 10/05/18 18:20 Eosinophils % 0.0 % 10/05/18 18:20 Basophils % 0.0 % 10/05/18 18:20 Metamyelocytes % 0.0 % 10/05/18 18:20 Myelocytes % 1.0 % 10/05/18 18:20 Promyelocytes % 0.0 % 10/05/18 18:20 Blast Cells % 0.0 % 10/05/18 18:20 Megakaryocytes % REJ 10/05/18 17:00 Immature Gran # 0.01 10^3/uL (0.00-0.10) 10/07/18 03:40 Absolute Seg Neuts 0.83 10^3/uL (1.70-6.50) L 10/05/18 18:20 Absolute Band Neuts 0.06 10^3/uL (0.00-0.70) 10/05/18 18:20 Absolute Lymphocytes 0.81 10^3/uL (1.00-3.00) L 10/05/18 18:20 Absolute Monocytes 0.13 10^3/uL (0.30-0.80) L 10/05/18 18:20 Absolute Eosinophils 0.00 10^3/uL (0.03-0.40) L 10/05/18 18:20 Absolute Basophils 0.00 10^3/uL (0.02-0.10) L 10/05/18 18:20 Absolute Metamyelocyte 0.00 10^3/mL (0.00-0.00) 10/05/18 18:20 Absolute Myelocytes 0.02 10^3/mL (0.00-0.00) H 10/05/18 18:20 Absolute Promyelocytes 0.00 10^3/uL (0.00-0.00) 10/05/18 18:20 Absolute Plasma Cells 0.00 10^3/uL (0.00-0.00) 10/05/18 18:20 Nucleated RBCs 0 /100 WBC (0-0) 10/05/18 18:20 Differential Comment REJ 10/05/18 17:00 RBC/WBC/PLT Morphology TNP 10/07/18 03:40 Hypersegmented Neuts REJ 10/05/18 17:00 Atypical Lymphocytes REJ 10/05/18 17:00 Absolute Blast Cells 0.00 10^3/uL (0.00-0.00) 10/05/18 18:20 Plasma Cells % 0.0 % 10/05/18 18:20 Smudge Cells REJ 10/05/18 17:00 Toxic Granulation REJ 10/05/18 17:00 Toxic Vacuolation REJ 10/05/18 17:00 Dohle Bodies REJ 10/05/18 17:00 Nino Rods REJ 10/05/18 17:00 Platelet Estimate TNP 10/07/18 03:40 Clumped Platelets REJ 10/05/18 17:00 Large Platelets REJ 10/05/18 17:00 Giant Platelets REJ 10/05/18 17:00 Bizarre Platelets REJ 10/05/18 17:00 Polychromasia 1+ H 10/06/18 05:00 Hypochromasia 1+ H 10/06/18 05:00 Basophilic Stippling REJ 10/05/18 17:00 Microcytic Cells 1+ H 10/06/18 05:00 Spherocytes REJ 10/05/18 17:00 Pappenheimer Bodies REJ 10/05/18 17:00 Sickle Cells REJ 10/05/18 17:00 Target Cells REJ 10/05/18 17:00 Tear Drop Cells REJ 10/05/18 17:00 Oval Macrocytes 1+ H 10/05/18 18:20 Stomatocytes REJ 10/05/18 17:00 Morin-Fleming Bodies REJ 10/05/18 17:00 Echinocytes REJ 10/05/18 17:00 Elliptocytes REJ 10/05/18 17:00 Acanthocytes (Spur) REJ 10/05/18 17:00 Rouleaux REJ 10/05/18 17:00 Keratocytes REJ 10/05/18 17:00 Schistocytes 1+ H 10/05/18 18:20 ESR 28 MM/HR (0-30) 10/05/18 18:20 PT 12.6 SEC (12.0-15.0) 10/06/18 09:58 INR 0.98 (0.83-1.16) 10/06/18 09:58 APTT 33.5 SEC (23.0-38.0) 10/06/18 09:58 VBG Lactic Acid 0.5 mmol/L (0.7-2.1) L 10/06/18 09:56 Sodium 138 mEq/L (135-145) 10/06/18 05:00 Potassium 4.3 mEq/L (3.5-5.2) 10/06/18 05:00 Chloride 106 mEq/L (97-110) 10/06/18 05:00 Carbon Dioxide 26 mEq/l (22-31) 10/06/18 05:00 Anion Gap 6 mEq/L (6-14) 10/06/18 05:00 BUN 16 mg/dL (7-23) 10/06/18 05:00 Creatinine 0.7 mg/dL (0.6-1.0) 10/06/18 05:00 Estimated GFR > 60 10/06/18 05:00 Glucose 98 mg/dL (70-100) 10/06/18 05:00 Calcium 8.2 mg/dL (8.5-10.4) L 10/06/18 05:00 Iron 62.0 mcg/dL (37.0-170.0) 10/07/18 15:41 TIBC 279 ug/dL (260-490) 10/07/18 15:41 Iron Saturation 22 % (20-55) 10/07/18 15:41 Ferritin 793.0 ng/mL (6.2-264.0) H 10/07/18 15:41 Total Bilirubin 0.2 mg/dL (0.1-1.4) 10/06/18 05:00 AST 48 IU/L (14-46) H 10/06/18 05:00 ALT 21 IU/L (9-52) 10/06/18 05:00 Alkaline Phosphatase 58 IU/L (38-126) 10/06/18 05:00 Creatine Kinase 77 IU/L (0-156) 10/05/18 17:00 C-Reactive Protein 9.0 mg/L (<10.0) 10/05/18 17:00 Total Protein 7.4 g/dL (6.3-8.2) 10/06/18 05:00 Total Protein (PEP) 7.3 g/dL (6.3-8.2) 10/07/18 15:41 Albumin 3.2 g/dL (3.5-5.0) L 10/06/18 05:00 Vitamin B12 > 1000 pg/mL (239-931) H 10/07/18 15:41 TSH 39.500 uIU/mL (0.465-4.680) H 10/05/18 17:00 Free T4 0.65 ng/dL (0.59-2.19) 10/06/18 05:00 Free T3 1.86 pg/mL (2.77-5.27) L 10/06/18 05:00 Cortisol PM Sample 4.5 ug/dL (1.7-14.1) 10/07/18 15:41 CSF Tube Number 4 10/06/18 14:26 CSF Appearance CLEAR (CLEAR) 10/06/18 14:26 CSF Color COLORLESS (COLORLESS) 10/06/18 14:26 CSF Supernatant COLORLESS (COLORLESS) 10/06/18 14:26 CSF WBC 2 /mm3 (0-5) 10/06/18 14:26 CSF RBC 2 /mm3 (0-0) H 10/06/18 14:26 CSF Glucose 43 mg/dL (50-75) L 10/06/18 14:26 CSF Total Protein 40 mg/dL (12-60) 10/06/18 14:26 Cold Agglutinins REJ 10/05/18 17:00 FARHAN Screen 2.49 UNITS (0-1.00) H 10/05/18 17:00 FARHAN Titer <1:40 (<1:40) 10/05/18 17:00 FARHAN Pattern NOT DETECTED BY IFA 10/05/18 17:00 FARHAN Reviewed By CLAY BAER MD 10/05/18 17:00 Proteinase 3 (PR3) < 0.2 U 10/05/18 17:00 Myeloperoxidase Ab <0.2 U 10/05/18 17:00 Leuk/Lym Micro Descript See Comments 10/06/18 14:26 Leuk/Lym Interpretation Performed 10/06/18 14:26 Leuk/Lym Special Studies See Comments 10/06/18 14:26 Leuk/Lym Final Diagnosis See Comments 10/06/18 14:26 Cryptococcus Ag Screen Negative (Negative) 10/06/18 14:26 TB Blood Test (T-Spot) TNP 10/08/18 13:59 Miscellaneous Test SEE COMMENTS 10/06/18 14:26 TAZ, Polyspecific NEGATIVE (NEGATIVE) 10/07/18 15:41 Assessment & Plan Assessment: Possible autoimmune diasease: She does meet SLICC criteria for SLE, with discoid lupus (biopsy-proven), Raynaud's, pancytopenia, FARHAN+ and SSA+. While fevers and generalized pain are not part of the criteria, both can certainly be present, especially low-grade fevers. She clearly has significant inflammation present, with her 09/29/18 ESR of 120. Her anemia could be anemia of chronic disease, but with that ESR and cytopenias, I would lean on heme to evaluate for processes, like hemophagocytic syndrome that may require more potent immunosuppression. Using prednisone in her could be complicated by her past history, which was initial success at low- dose before lack of success and more intolerable side effects. She is quite nervous to start any dose of steroids or immunosuppression, but, considering her lack of response and worsening symptoms on high-dose IVIg, she will need a combination of both prednisone and immunosuppressives, like MMF, azathioprine, belimumab or methotrexate. For her combination of symptoms, I typically lean on MMF or azathioprine, but she is reticent to start azathioprine due to GI side effects and was more interested in belimumab as a SQ injection every week. Due to these concerns, it would be reasonable, once infections and malignancy are ruled out, to start this combination, perhaps with an initial IV solumedrol dose of 60mg. If she tolerates the first dose, I would give another before transitioning to PO prednisone. We discussed her reticence and agreed to try 20mg, although I would tend to use a dose of 30mg or more for her symptoms. She will consider the longer-term immunosuppressives, and I will discuss her IVIg with Dr. Fierro. Other labs to order would include: procalcitonin (has been shown to help differentiate infection from lupus flares), CRP, C3, C4.
--- NOTE | 2018-10-08 17:17 | SOAPPROG ---
SOAP Progress Note Assessment/Plan: Assessment: 1) Systemic lupus 2) Pancytopenia likely secondary to #1 3) Mild splenomegaly secondary to #1 Plan: Overall picture seems c/w Lupus. Patient has been seen by Rheumatology and will be started on steroid therapy. Her pancytopenia is highly likely secondary to her Lupus. The mild splenomegaly seen on u/s supports this. She has no evidence of a monoclonal protein. CSF flow cytometry negative. HIV screen negative. The results of these tests were reviewed with her and her questions were answered. Our service will continue to follow her progress intermittently. 10/08/18 17:12 Subjective: Seen by Rheumatology. Overall picture felt c/w Lupus Objective: Vital Signs Temp Pulse Resp BP Pulse Ox 37.3 C 86 20 111/68 95 10/08/18 11:23 10/08/18 11:23 10/08/18 11:23 10/08/18 11:23 10/08/18 11:23 Microbiology 10/06/18 14:26 Gram Stain - Final Cerebral Spinal Fluid Laboratory Results 10/07/18 03:40 10/06/18 05:00 10/07/18 10/08/18 10/09/18 05:59 05:59 05:59 Intake Total 350 3059 Balance 350 3059 PT 12.6 SEC (12.0-15.0) 10/06/18 09:58 INR 0.98 (0.83-1.16) 10/06/18 09:58 - Time Spent With Patient Time Spent With Patient: 15 minutes Physical Exam - Physical Exam General Appearance: alert, no apparent distress Neuro/Psych: alert, normal mood/affect ICD10 Worksheet Patient Problems: Problems Problem Status Onset Foreign body of right index finger Acute Infection associated with catheter Acute
[2018-10-08] MEDS: LEVOTHYROXINE 75 MCG TAB PO SCH (19:56)
[2018-10-08] MEDS: valACYclovir 500 MG TAB PO SCH (21:24)
[2018-10-08] MEDS: ACETAMINOPHEN 325 MG TAB PO PRN (21:24)
[2018-10-08] MEDS: oxyCODONE IR 5 MG TAB PO PRN (21:24)
[2018-10-09] MEDS: ONDANSETRON 4 MG/2 ML VIAL IVP PRN ×3 (02:31→21:46)
[2018-10-09] MEDS: HYDROmorphONE/DILAUDID 1 MG/ML INJ IVP PRN ×4 (02:31→21:55)
[2018-10-09 05:04] LABS: PLATELET COUNT 160 10^3/uL (150-400)
[2018-10-09] MEDS ORDERED: methylPREDNISolone SOD SUCC 125 MG/2 ML VIAL IVP ONE ×2 (09:00)
--- NOTE | 2018-10-09 09:12 | HOSPPROG ---
Hospitalist Progress Note Assessment/Plan: 53 yo female with CVID presents with 4 weeks of fevers, headaches of unclear etiology. Has biopsy proven discoid lupus, Raynaud's, panyctopenia, FARHAN+ (titer 1:320 as outpt, <1:40 here), SSA+. LP without pleocytosis; meningoencephalitis panel negative, CSF cultures negative, bcx negative. #FUO: Suspect rheumatologic process, likely lupus flare. Interestingly, she has been on Coartem which can cause fevers and headaches. - Rheum consulted, recommend initiating IV steroids - Patient refusing 60mg IV solumedrol - She is only agreeable to 20mg IV solumedrol, which I have ordered. If tolerates, will try additional 20mg IV this afternoon. - T-spot ordered (given her immunocompromised state) - C3/C4 levels ordered #Pancytopenia: Suspect marrow suppression from process driving #1. - Hematology consultation, appreciate recs - SPEP without monoclonal spike, CSF flow cytometry negative, HIV negative #Headaches, neck pain: Related to above - IV dilaudid, oxycodone PRN #Low AM cortisol: Has been on steroids in past, possibly some AI - We do not have cosyntropin so unable to stimulate HPA axis but we do have baseline for her prior to steroids #CVID: Receives q3w IVIG, mostly recently last week. Followed by Dr Fierro ( promotions producer, cell [phone]) #Mild splenomegaly: Likely related to SLE. 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 #Hypotension: Perfusing well. - Check AM cortisol #Hypothyroidism: TSH >35, free T4 nl, low T3. Recently increased LT4 dose - Continue synthroid at 75mcg/day, needs repeat TSH in 2-3 weeks VTE ppx: LMWH Code: full Dispo: Remain inpatient, ADD uncertain Subjective: Severe headache and neck pain this morning. She is very anxious and worried about steroids, adamant that she cannot handle 60mg IV solumedrol. Objective: Vital Signs Temp Pulse Resp BP Pulse Ox 37.1 C 88 18 133/68 H 91 L 10/09/18 08:32 10/09/18 08:32 10/09/18 08:32 10/09/18 08:32 10/09/18 08:32 Microbiology 03/06/19 14:26 Gram Stain - Final Cerebral Spinal Fluid Laboratory Results 10/09/18 04:45 10/06/18 05:00 10/08/18 10/09/18 10/10/18 05:59 05:59 06:59 Intake Total 3059 1100 Output Total 7 Balance 3059 1093 PT 12.6 SEC (12.0-15.0) 10/06/18 09:58 INR 0.98 (0.83-1.16) 10/06/18 09:58 - Physical Exam Constitutional: appears nourished, uncomfortable Eyes: PERRL, anicteric sclera Ears, Nose, Mouth, Throat: moist mucous membranes Cardiovascular: regular rate and rhythym, no murmur, rub, or gallop Respiratory: no respiratory distress, no rales or rhonchi, clear to auscultation Gastrointestinal: normoactive bowel sounds, soft, non-tender abdomen, no palpable masses Genitourinary: no bladder fullness, no bladder tenderness, no renal bruits Skin: other (erythema of bilateral cheeks) Musculoskeletal: full muscle strength Neurologic: AAOx3 Psychiatric: interacting appropriately ICD10 Worksheet Patient Problems: Problems Problem Status Onset Foreign body of right index finger Acute Infection associated with catheter Acute
[2018-10-09] MEDS: buPROPion XL 150 MG TAB PO SCH (09:45)
[2018-10-09] MEDS: ENOXAPARIN 40 MG/0.4 ML SYR SC SCH (10:51)
[2018-10-09] MEDS ORDERED: methylPREDNISolone SOD SUCC 40 MG/ML VIAL IVP ONE (15:00)
[2018-10-09] MEDS: valACYclovir 500 MG TAB PO SCH (21:56)
[2018-10-09] MEDS: NAPROXEN SODIUM 220 MG TAB PO PRN (22:04)
[2018-10-09] MEDS: LEVOTHYROXINE 75 MCG TAB PO SCH (23:40)
[2018-10-10] MEDS: ONDANSETRON 4 MG/2 ML VIAL IVP PRN ×5 (01:56→22:44)
[2018-10-10] MEDS: HYDROmorphONE/DILAUDID 1 MG/ML INJ IVP PRN ×6 (03:00→23:52)
[2018-10-10 03:28] LABS: PLATELET COUNT 204 10^3/uL (150-400)
--- NOTE | 2018-10-10 08:51 | HOSPPROG ---
Hospitalist Progress Note Assessment/Plan: 53 yo female with CVID presents with 4 weeks of fevers, headaches of unclear etiology. Has biopsy proven discoid lupus, Raynaud's, panyctopenia, FARHAN+ (titer 1:320 as outpt, <1:40 here), SSA+. LP without pleocytosis; meningoencephalitis panel negative, CSF cultures negative, bcx negative. #FUO: Suspect rheumatologic process, likely lupus flare. Interestingly, she has been on Coartem which can cause fevers and headaches. - Rheum consulted, recommend initiating IV steroids - Patient refusing 60mg IV solumedrol - s/p 20mg IV solumedrol x2 yesterday with ? benefit - She is agreeable to 30mg IV solumedrol this AM, which I have ordered - T-spot ordered (given her immunocompromised state) - C3/C4 levels ordered - Will need to re-discuss with rheumatology tomorrow #Pancytopenia: Suspect marrow suppression from process driving #1. - Hematology consultation, appreciate recs - SPEP without monoclonal spike, CSF flow cytometry negative, HIV negative #Headaches, neck pain: Related to above - IV dilaudid, oxycodone PRN #Post-nasal drip: No indication for antibiotics. Sxs treatment. #Low AM cortisol: Has been on steroids in past, possibly some AI - We do not have cosyntropin so unable to stimulate HPA axis but we do have baseline for her prior to steroids #CVID: Receives q3w IVIG, mostly recently last week. Followed by Dr Fierro ( intelligence intern, cell [phone]) #Mild splenomegaly: Likely related to SLE. 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 #Hypotension: Perfusing well. - Check AM cortisol #Hypothyroidism: TSH >35, free T4 nl, low T3. Recently increased LT4 dose - Continue synthroid at 75mcg/day, needs repeat TSH in 2-3 weeks VTE ppx: LMWH Code: full Dispo: Remain inpatient, ADD uncertain Subjective: Woke up without headache but then returned however less severe than yesterday. She did fever to 38.3 yesterday afternoon. She is having some greenish nasal discharge. Objective: Vital Signs Temp Pulse Resp BP Pulse Ox 37.0 C 81 16 113/63 94 10/10/18 07:57 10/10/18 07:57 10/10/18 07:57 10/10/18 07:57 10/10/18 07:57 Microbiology 10/06/18 14:26 Gram Stain - Final Cerebral Spinal Fluid Laboratory Results 10/10/18 03:17 10/10/18 03:17 10/09/18 10/10/18 10/11/18 04:59 05:59 05:59 Intake Total Output Total Balance PT 12.6 SEC (12.0-15.0) 10/06/18 09:58 INR 0.98 (0.83-1.16) 10/06/18 09:58 - Physical Exam Constitutional: appears nourished, uncomfortable Eyes: PERRL, anicteric sclera Ears, Nose, Mouth, Throat: moist mucous membranes, other (posterior oropharyngeal erythema without exudate) Cardiovascular: regular rate and rhythym, no murmur, rub, or gallop Respiratory: no respiratory distress, no rales or rhonchi, clear to auscultation Gastrointestinal: normoactive bowel sounds, soft, non-tender abdomen, no palpable masses Genitourinary: no bladder fullness, no bladder tenderness, no renal bruits Skin: no rashes or abrasions, no fluctuance, no induration, other (erythema on bilateral cheeks unchanged) Musculoskeletal: full muscle strength, no muscle tenderness, normal joint ROM Neurologic: AAOx3, sensation intact bilaterally Psychiatric: interacting appropriately, not anxious, not encephalopathic, thought process linear ICD10 Worksheet Patient Problems: Problems Problem Status Onset Foreign body of right index finger Acute Infection associated with catheter Acute
[2018-10-10] MEDS: ENOXAPARIN 40 MG/0.4 ML SYR SC SCH (09:18)
[2018-10-10] MEDS ORDERED: methylPREDNISolone SOD SUCC 40 MG/ML VIAL IVP ONE ×2 (09:25→14:13)
[2018-10-10] MEDS ORDERED: NS 1,000 ML IV SCH (10:00)
[2018-10-10] MEDS: buPROPion XL 150 MG TAB PO SCH (10:08)
--- NOTE | 2018-10-10 16:45 | ASMTCMCOM ---
CM Note CM Note Notes: Reviewed dc plan of care with MD. 53 year old patient with fever and neutropenia, normally lives independent with and children. No current needs identified at this time. CM available should needs arise. Plan: Likely home independently Date Signed: 10/10/2018 04:45 PM Electronically Signed By:Lian Kelly RN
[2018-10-10] MEDS ORDERED: HYDROmorphONE/DILAUDID 1 MG/ML INJ IVP PRN (21:30)
[2018-10-10] MEDS: valACYclovir 500 MG TAB PO SCH (21:51)
[2018-10-10] MEDS: LEVOTHYROXINE 75 MCG TAB PO SCH (22:21)
[2018-10-11] MEDS: HYDROmorphONE/DILAUDID 1 MG/ML INJ IVP PRN ×5 (01:57→22:03)
[2018-10-11] MEDS: LORazepam 2 MG/ML INJ IVP PRN (01:58)
[2018-10-11] MEDS: ONDANSETRON 4 MG/2 ML VIAL IVP PRN ×4 (03:25→22:04)
[2018-10-11 03:42] LABS: PLATELET COUNT 204 10^3/uL (150-400)
--- NOTE | 2018-10-11 08:55 | HOSPPROG ---
Hospitalist Progress Note Assessment/Plan: 53 yo female with CVID presents with 4 weeks of fevers, headaches of unclear etiology. Has biopsy proven discoid lupus, Raynaud's, panyctopenia, FARHAN+ (titer 1:320 as outpt, <1:40 here), SSA+. LP without pleocytosis; meningoencephalitis panel negative, CSF cultures negative, bcx negative. #FUO: Suspect rheumatologic process, likely lupus flare. Interestingly, she has been on Coartem which can cause fevers and headaches. - Rheum consulted. I re-discussed case with Dr Rae today. Recommends solumedrol 60mg q6h or equivalent. - Patient refusing above steroid dose - IV solumedrol 20mg IV x2 today - Switch to prednisone 20mg daily tomorrow AM - T-spot ordered (given her immunocompromised state) #Pancytopenia: Hematology consulted, likely marrow suppression from lupus. - SPEP without monoclonal spike, CSF flow cytometry negative, HIV negative #Headaches, neck pain: Related to above - IV dilaudid (wean as able), oxycodone PRN #Hyperkalemia: This has occurred last 2 mornings with normalization on PM check. Unclear etiology. Monitor. #Low AM cortisol: Has been on steroids in past, possibly some AI - We do not have cosyntropin so unable to stimulate HPA axis but we do have baseline for her prior to steroids #CVID: Receives q3w IVIG, mostly recently last week. Followed by Dr Fierro ( sewing machine maintenance mechanic, cell [phone]) #Mild splenomegaly: Likely related to SLE. 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 #Hypotension: Perfusing well. #Hypothyroidism: TSH >35, free T4 nl, low T3. Recently increased LT4 dose - Continue synthroid at 75mcg/day, needs repeat TSH in 2-3 weeks VTE ppx: LMWH Code: full Dispo: Remain inpatient, ADD possibly tomorrow if off IV meds Subjective: Pain overall better since starting steroids but still with headache/ neck pain. She is very anxious about how long and what dose of steroids. Thinks she is going to have a heart attack with higher doses, won't take anything above solumedrol 20mg at a time. Objective: Vital Signs Temp Pulse Resp BP Pulse Ox 37.0 C 82 16 99/60 L 92 10/11/18 07:47 10/11/18 07:47 10/11/18 07:47 10/11/18 07:47 10/11/18 07:47 Microbiology 10/05/18 17:00 Blood Culture - Final Blood 10/05/18 16:52 Blood Culture - Final Blood 10/06/18 14:26 Gram Stain - Final Cerebral Spinal Fluid CSF Culture - Final Laboratory Results 10/11/18 03:28 10/11/18 03:28 10/10/18 10/11/18 10/12/18 05:59 05:59 05:59 Intake Total 3500 Balance 3500 PT 12.6 SEC (12.0-15.0) 10/06/18 09:58 INR 0.98 (0.83-1.16) 10/06/18 09:58 - Physical Exam Constitutional: appears nourished, uncomfortable Eyes: PERRL Ears, Nose, Mouth, Throat: moist mucous membranes, no oral mucosal ulcers Cardiovascular: regular rate and rhythym, no murmur, rub, or gallop Respiratory: no respiratory distress, no rales or rhonchi, clear to auscultation Gastrointestinal: normoactive bowel sounds, soft, non-tender abdomen, no palpable masses Genitourinary: no bladder fullness, no bladder tenderness, no renal bruits Skin: erythema (small area bilateral cheeks) Musculoskeletal: full muscle strength Neurologic: AAOx3 Psychiatric: interacting appropriately, anxious ICD10 Worksheet Patient Problems: Problems Problem Status Onset Foreign body of right index finger Acute Infection associated with catheter Acute
[2018-10-11] MEDS ORDERED: methylPREDNISolone SOD SUCC 40 MG/ML VIAL IVP ONE ×2 (10:46→13:47)
[2018-10-11] MEDS ORDERED: NS 1,000 ML IV SCH (11:00)
[2018-10-11] MEDS: ENOXAPARIN 40 MG/0.4 ML SYR SC SCH (13:19)
[2018-10-11] MEDS: buPROPion XL 150 MG TAB PO SCH (13:45)
[2018-10-11] MEDS: valACYclovir 500 MG TAB PO SCH (22:03)
[2018-10-11] MEDS ORDERED: LEVOTHYROXINE 125 MCG TAB PO SCH (22:15)
[2018-10-11] MEDS ORDERED: CEPACOL LOZENGE PO PRN (22:47)
[2018-10-11] MEDS: LEVOTHYROXINE 75 MCG TAB PO SCH (23:09)
[2018-10-12] MEDS: ONDANSETRON 4 MG/2 ML VIAL IVP PRN (02:13)
[2018-10-12] MEDS: LORazepam 2 MG/ML INJ IVP PRN (02:13)
[2018-10-12] MEDS: HYDROmorphONE/DILAUDID 1 MG/ML INJ IVP PRN (02:14)
[2018-10-12] MEDS ORDERED: predniSONE 20 MG TAB PO SCH (06:00)
[2018-10-12] MEDS: buPROPion XL 150 MG TAB PO SCH (09:56)
[2018-10-12] MEDS: ENOXAPARIN 40 MG/0.4 ML SYR SC SCH (10:21)
--- NOTE | 2018-10-12 10:23 | PDDCSUM ---
Discharge Summary Discharge Summary: Date of Admission: 10/05/2018 Date of Discharge: 10/12/2018 Consultants: ID, hematology/oncology, rheumatology Procedures: lumbar puncture Studies: abdominal ultrasound (had MRI brain and cervical spine w/wo contrast in ED day prior to admission) Discharge Diagnoses: 1. Suspected acute lupus flare 2. Fever due to above 3. Headaches 4. Pancytopenia 5. Discoid lupus 6. Raynaud's phenomena 7. 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 Hypothyroidism (undertreated on labs, LT4 recently increased) 10. Depression 11. Chronic fatigue Brief Hospital Course: 53 yo female with CVID on q6week IVIg presented with 4+ weeks of fevers, generalized body aches, and headaches of unclear etiology. She was admitted for evaluation of fever of unknown origin. Her symptoms started approximately 2 months ago after an x-ray machine fell on her head while getting dental work. Her IVIg dose was also increased about 6 weeks ago and she was started on an immunomodulator called Coartem. She then experienced the aforementioned symptoms as well as a new facial rash (which had been previously biopsied and diagnosed as discoid lupus). She had labs done at her manager business intelligence's office which showed a positive FARHAN with 1:320 titer, +SSA, ESR of 120, and pancytopenia. She had fevers at home to 101.8 and intermittent fevers to 38.9 while hospitalized. ID was consulted. She had a thorough infectious work up, including LP with CSF cultures and 2 sets of blood cultures, that was unremarkable. Heme/onc was consulted; they felt that her pancytopenia was due to lupus. She had no e/o a monoclonal protein; CSF flow cytometry was negative, as was HIV testing. Rheumatology was also consulted. Her constellation of symptoms and clinical findings were felt to be related to an autoimmune process. She was meeting criteria for SLE. She was started on steroids with clinical improvement. Of, note she was very resistant to high doses of steroids and she did not receive the recommended doses as prescribed by the academic associate. She was agreeable to discharging on prednisone 20mg daily with rheumatology follow up to discuss steroid-sparing therapies. A T-spot is pending if/when long-term immunosuppression is used. Medications: Please refer to EMR for complete list. I wrote a prescription for Prednisone 20mg QD x1 month supply, [place] 10-325mg q6h PRN #20 with 0 refills, Ativan 0.5mg q8h PRN #8 with 0 refills (for anxiety while on steroids), and Zofran ODT PRN. Follow Up Plan: 1. Rheumatology clinic appt with Dr Rodger Rae on 10/19 2. Needs thyroid studies rechecked in 2-3 weeks (beginning of November) Physical Exam: Vitals reviewed, afebrile >48 hours. Alert and oriented, anxious. Erythematous rash on bilateral cheeks. RRR, lungs clear, abdomen soft and nt, no other rashes, no synovitis, no edema.
--- NOTE | 2018-10-12 10:59 | PCMIDPN ---
Assessment/Plan: Assessment/Plan: * Fever, headache and cytopenia: Constellation of findings felt to be most compatible with autoimmune disease, most likely lupus. Clinically improved with corticosteroid therapy with improved white blood cell count and platelet count. Infectious workup negative to date with Coccidioides antibody pending although suspect this will be of low likelihood. Contribution from prior Coartem use remains consideration although most likely related to underlying autoimmune disease. Discussed with patient importance of ongoing follow-up with rheumatology for further decision making regarding treatment plan of care. T spot also pending in event patient requires any immunosuppressive therapy associated with increased risk of tuberculosis development. * Sore throat: Clinically appears normal on exam. Continue observation off antibiotics. Clinical findings and plan reviewed with patient and Dr. Wayne today. 10/12/18 10:55 10/12/18 10:57 Subjective: Patient complains of sore throat. Not sleeping well with prednisone. Concerned about long-term plan of care. Objective: Vital Signs Temp Pulse Resp BP Pulse Ox 37.1 C 86 16 108/69 95 10/12/18 08:42 10/12/18 08:42 10/12/18 08:42 10/12/18 08:42 10/12/18 08:42 Microbiology 10/05/18 17:00 Blood Culture - Final Blood 10/05/18 16:52 Blood Culture - Final Blood Laboratory Results 10/12/18 05:30 10/12/18 05:30 10/11/18 10/12/18 10/13/18 05:59 05:59 05:59 Intake Total 3500 2500 Balance 3500 2500 ESR 28 MM/HR (0-30) 10/05/18 18:20 C-Reactive Protein 9.0 mg/L (<10.0) 10/05/18 17:00 No antibiotic therapy Blood cultures no growth Coccidioides antibody and T spot pending Urine Histoplasma antigen negative Cryptococcal antigen negative - Physical Exam General Appearance: alert, no apparent distress, non-toxic EENT: pharynx normal, No scleral icterus, No thrush Respiratory: lungs clear, No respiratory distress Cardiac/Chest: regular rate, rhythm Abdomen: non-tender, No distended ICD10 Worksheet Patient Problems: Problems Problem Status Onset Foreign body of right index finger Acute Infection associated with catheter Acute
[2018-10-12] MEDS ORDERED: HYDROCODONE/APAP 10/325 TAB PO PRN (12:02)
[2018-10-12] MEDS ORDERED: LORazepam 0.5 MG TAB PO PRN (12:02)
[2018-10-12 13:08] VITALS: BP 126/79
--- NOTE | 2018-10-12 14:38 | ASMTLACE ---
ANEESH Length of stay for Answers: 4-6 days current admission Acuity / Level of Answers: Yes Care: Did the patient have an inpatient admission? Comorbidities - select Answers: Other Notes: Hypothyroid; CVID; Lupu s all that apply # of Emergency department Answers: 1-2 visits in the last 6 months Social determinants Answers: Mental health diagnosis (anxiety, depression, pers onality disorders, etc.) Score: 12 Date Signed: 10/12/2018 02:38 PM Electronically Signed By:Lian Kelly RN
--- NOTE | 2018-10-12 14:44 | ASMTCMCOM ---
CM Note CM Note Notes: Patient plan of care reviewed in am rounds. On oral prednisone. Medically cleared for discharge to home. No needs identified at this time. Plan: Dc to home with outpatient follow up. Date Signed: 10/12/2018 02:43 PM Electronically Signed By:Lian Kelly RN
--- NOTE | 2018-10-13 08:47 | CPEKG ---
Test Reason : OPEN Blood Pressure : / mmHG Vent. Rate : 093 BPM Atrial Rate : 093 BPM P-R Int : 127 ms QRS Dur : 096 ms QT Int : 362 ms P-R-T Axes : 076 066 049 degrees QTc Int : 451 ms Sinus rhythm Confirmed by Ceferino Diaz ([id number] on 10/13/2018 8:46:25 AM Referred By: Dionne Vazquez Confirmed By:Ceferino Diaz
== END 2018-10-12 14:55 | disposition home or self-care (01) | DRG 546 ==
LOC: F1N 14:00 → INTOOBSV 14:00 → OBSVTOIN 10-06 18:25
PROVIDERS: ADMIT Internal Medicine; ATTEND Internal Medicine
PROC: 009U3ZX Drainage of Spinal Canal, Percutaneous Approach, Diagnostic (ICD-10-PCS; principal; 2018-10-06)
DX: M32.9 Systemic lupus erythematosus, unspecified (principal); D83.9 Common variable immunodeficiency, unspecified; E03.9 Hypothyroidism, unspecified; I73.00 Raynaud's syndrome without gangrene; E87.0 Hyperosmolality and hypernatremia; E87.6 Hypokalemia; Z86.19 Personal history of other infectious and parasitic diseases; F32.9 Major depressive disorder, single episode, unspecified
CPT/HCPCS: 82607-90; 83010-90; 84481-90; 86021-90; 86225-90; 86334-90; 86635-90; 87385-90; G0378; J1170; J1650; J2060; J2250; J2310; J2405; J2920; J2930; J3010